=== PATIENT | male | born 1935 | race Caucasian/White ===

== ENCOUNTER 2017-06-29 07:02 | Day surgery (SDC) | payer OTHER, BC ==
[2017-06-29] MEDS ORDERED: LIDOCAINE 1% MPF 5 ML VIAL ONE (08:16)
[2017-06-29] MEDS ORDERED: PROPOFOL 200 MG/20 ML VIAL IV ONE (08:16)
[2017-06-29] MEDS ORDERED: Ringers Lactate 1,000 ML IV ONE (08:23)
[2017-06-29] MEDS ORDERED: ONDANSETRON 4 MG/2 ML VIAL ONE (08:55)
[2017-06-29 09:43] VITALS: BP 126/67; TEMP 97; O2SAT 100
--- NOTE | 2017-06-29 10:25 | ENDO RPT ---
[address], [address] COLONOSCOPY PROCEDURE REPORT EXAM DATE: 06/29/2017 PATIENT NAME: Ace William MR #: [id number] BIRTHDATE: 1935 ATTENDING: Jose Alejandro Landry MD STATUS: outpatient PAEDIATRICIAN: Christy Huerta and Mary Ko RN INDICATIONS: The patient is a 82 yr old Male here for a colonoscopy due to abdominal pain, unexplained chronic diarrhea, personal history of colon polyps, and change in bowel habits PROCEDURE PERFORMED: Colonoscopy with biopsy - cold polypectomy MEDICATIONS: Per Anesthesia. ESTIMATED BLOOD LOSS: None CONSENT: The patient understands the risks and benefits of the procedure and understands that these risks include, but are not limited to: sedation, allergic reaction, infection, perforation and/or bleeding. Alternative means of evaluation and treatment include, among others: physical exam, x-rays, and/or surgical intervention. The patient elects to proceed with this endoscopic procedure. DESCRIPTION OF PROCEDURE: During intra-op preparation period all mechanical medical equipment was checked for proper function. Hand hygiene and appropriate measures for infection prevention was taken. Procedure, possible complications, alternatives including, but not limited to possibility of bleeding, perforation, tear, infection, sepsis, need for surgery, need for blood transfusion, were explained to the patient. After the risks, benefits and alternatives of the procedure were thoroughly explained, Informed consent was verified, confirmed and timeout was successfully executed by the treatment team. The patient was placed in the left lateral position. A digital rectal exam was performed and revealed external hemorrhoids. After appropriate level of anesthesia, the scope was passed. The EC-[id number] ([id number]) endoscope was introduced through the anus and advanced to the cecum, which was identified by transillumination from the light source, the appendix, and the ileocecal valve. The quality of the prep was good. The instrument was then slowly withdrawn as the colon was fully examined. Scope withdrawal time was . COLON FINDINGS: Multiple smooth sessile polyps were found. A polypectomy was performed using hot forceps. The resection was complete, the polyp tissue was completely retrieved and sent to histology. A small diffuse near circumferential patch of abnormal mucosa was found in the sigmoid colon. The mucosa was edematous and erythematous. A biopsy of the area was performed using hot forceps. sessile polyps, less than 0.5 cm in size at approx 120cm and 35 cm from anal verge. Retroflexed views revealed no abnormalities. The scope was then completely withdrawn from the patient and the procedure terminated. ADVERSE EVENTS: There were no complications. IMPRESSIONS: 1. Multiple sessile polyps were found; polypectomy was performed in a piecemeal fashion using hot forceps 2. Small diffuse near circumferential abnormal mucosa was found in the sigmoid colon; The mucosa was edematous and erythematous; biopsy of the area was performed using hot forceps 3. External hemorrhoids 4. Internal hemorrhoids RECOMMENDATIONS: 1. await biopsy results RECALL: for Colonoscopy, pending biopsy results. Jose Alejandro Landry MD eSigned: Jose Alejandro Landry MD 06/29/2017 10:24 AM cc: Miky Pérez M.D. CPT CODES: ICD9 CODES: PATIENT NAME: Ace William MR#: [id number]
== END 2017-06-29 09:55 | disposition home or self-care (01) ==
LOC: OR 07:02
PROVIDERS: ATTEND Surgery
PROC: 0DBE8ZZ Excision of Large Intestine, Via Natural or Artificial Opening Endoscopic (ICD-10-PCS; principal; 2017-06-29 08:30)
DX: D12.6 Benign neoplasm of colon, unspecified (principal); K52.9 Noninfective gastroenteritis and colitis, unspecified; K64.8 Other hemorrhoids; K64.4 Residual hemorrhoidal skin tags; I10 Essential (primary) hypertension; Z85.828 Personal history of other malignant neoplasm of skin; Z86.73 Personal history of transient ischemic attack (TIA), and cerebral infarction without residual deficits; Z80.1 Family history of malignant neoplasm of trachea, bronchus and lung; Z82.49 Family history of ischemic heart disease and other diseases of the circulatory system
CPT/HCPCS: 45380; 88305; J2405

== ENCOUNTER 2018-08-09 09:19 | Day surgery (SDC) | payer OTHER, BC ==
--- OUTSIDE RECORDS SUMMARY | 2018-08-09 09:24 | XMS REPORT ---
:1935 Author Organization eClinicalWorks Care Team Providers Name Role Phone Kimberly Gomes Provider Role Unavailable Allergies No Known Allergies Problems Problem Type Condition Code Onset Dates Condition Status Assessment Benign prostatic hyperplasia with N40.1 Active lower urinary tract symptoms Problem Benign prostatic hyperplasia with N40.1 Active lower urinary tract symptoms Medications Medication Code Code Instructions Start End Status Dosage System Date Date Prinivil [facility] 87926083168 10 MG Orally Active 1 tablet Once a day Lipitor [facility] 79462141200 20 MG Orally Active 1 tablet Once a day Omeprazole ND 92818669486 40 MG Orally Active 1 capsule Once a day Fiber Formula [facility] 77005222937 - Orally Active as directed Paroxetine HCl [facility] 13606213937 20 MG Orally Active 1 tablet in Once a day the morning Jem Aspirin [facility] 03316175012 325 MG Orally Active 1 tablet Once a day Tamsulosin HCl [facility] 70021919061 0.4 MG Orally Apr 19September Active 1 capsule Once a day 2018 Results No Known Results Summary Purpose eClinicalWorks Submission
--- OUTSIDE RECORDS SUMMARY | 2018-08-09 09:25 | XMS REPORT ---
:1935 Author Organization eClinicalWorks Care Team Providers Name Role Phone Kimberly Gomes Provider Role Unavailable Allergies, Adverse Reactions, Alerts Substance Reaction Event Type N.K.D.A. Info Not Available Non Drug Allergy Problems Problem Type Condition Code Onset Dates Condition Status Assessment Benign prostatic hyperplasia with N40.1 Active lower urinary tract symptoms Problem Benign prostatic hyperplasia with N40.1 Active lower urinary tract symptoms Medications Medication Code Code Instructions Start End Status Dosage System Date Date Prinivil [facility] 30364984333 10 MG Orally Active 1 tablet Once a day Paroxetine HCl ND 15584108135 20 MG Orally Active 1 tablet in Once a day the morning Omeprazole ND 77507627451 40 MG Orally Active 1 capsule Once a day Fiber Formula [facility] 42856249853 - Orally Active as directed Jem Aspirin ND 08814829738 325 MG Orally Active 1 tablet Once a day Lipitor ND 81808332095 20 MG Orally Active 1 tablet Once a day Tamsulosin HCl [facility] 96296811558 0.4 MG Orally Active 1 capsule Once a day Results No Known Results Summary Purpose eClinicalWorks Submission
[2018-08-09] MEDS ORDERED: Ringers Lactate 1,000 ML IV ONE (10:07)
[2018-08-09] MEDS ORDERED: CEFAZOLIN/SWI 1gm 1 GM/10 ML SYR ONE (10:07)
[2018-08-09] MEDS ORDERED: LIDOCAINE 2% MPF 5 ML VIAL ONE (10:32)
[2018-08-09] MEDS ORDERED: PROPOFOL 200 MG/20 ML VIAL IV ONE (10:32)
[2018-08-09] MEDS ORDERED: FENTANYL CITR 100 MCG/2 ML ONE (10:32)
[2018-08-09] MEDS ORDERED: GLYCOPYRROLATE 0.2 MG/ML SYR ONE ×2 (11:16)
[2018-08-09] MEDS ORDERED: EPHEDRINE SULF 50 MG/ML VIAL ONE (11:45)
--- NOTE | 2018-08-09 11:55 | P.BOP ---
Preoperative diagnosis: Multiple chest, back assymetrical in shape and color masses Postoperative diagnosis: same Primary procedure: wide excision with frozen section 1. R upper chest 1x1cm Secondary procedure: 2. R upper back 2.5x1cm 3. L upper chest 3x3cm Other procedure(s): 4. Mid chest 1.5 x 1.5 cm Estimated blood loss: <10cc Specimen: x4 Findings: margins free of tumor by Dr Perez, final path will come after formal eval. Anesthesia: General Complications: None Transferred to: Recovery Room Condition: Good
[2018-08-09 13:03] VITALS: O2SAT 98
[2018-08-09] MEDS ORDERED: CODEINE 30MG/APAP 300MG TAB PO ONE (13:50)
[2018-08-09] MEDS ORDERED: CODEINE 30MG/APAP 300MG TAB ONE (14:02)
[2018-08-09 15:23] VITALS: BP 134/60; TEMP 97.2
--- NOTE | 2018-08-09 23:40 | OP ---
Date of Procedure: 08/09/2018 Surgeon: Jose Alejandro Landry MD Preoperative Diagnosis: Multiple chest, back asymmetrical in shape and color masses, rule out malign reyna. Postoperative Diagnosis: Multiple chest, back asymmetrical in shape and color masses, rule out malig moustapha. Procedure: 1.Wide excision with frozen section of the right upper chest mass 1 x 1 cm. 2.Wide excision with frozen section of the right upper back skin mass 2.5 x 1 cm. 3.Wide excision with frozen section of left upper chest skin mass 3 x 3 cm. 4.Wide excision with frozen section of mid chest 1.5 x 1.5 cm. Specimen: Masses x4. Findings: Margin free of tumor by Dr. Duenas. We are going to wait for the final result after the formal evaluation and permanent section. Anesthesia: General plus local. Indications: This is the case of an 83-year-old patient with history of skin cancer in the past, wit h 4 lesions that are changing color. It is becoming itchy, scaly, and ulcerated on and off. He want s all of them excised. The benefits, alternatives, and risks of wide excision of those lesions were fully explained to the patient with frozen section, including but not limited to infection, bleeding, damage to adjacent structures, anesthesia complication, recurrence, [place], and even . He also und erstands this may not relieve any symptoms. He might need more than one surgical intervention. He u nderstood, signed a consent. Each lesion was marked by me on the patient in the holding room. Description Of Procedure: The patient was brought to the operating room, placed in supine position. A time-out was called. The chest and back area were prepped and draped in a sterile fashion. Each mass was done individually the instruments to avoid cross contamination. Each mass was se nt to the pathologist individually and all of them using the same technique which consisted of wedge excision of the skin with gross negative margins all the way down to fat and subcutaneous tissue, priscilla beltran for orientation, and sent to the pathologist. Each lesion was done with closure in layers with 3 -0 chromic in the subcutaneous layers and dermis and then 3-0 nylon for the skin. Each procedure was done individually. Sponge count and instrument counts were correct. Local anesthesia was applied b efore closure and also hemostasis was applied before closure and after irrigation. The patient mary ated the procedure well. Dr. Duenas called the lesions varies from different pathologist, but that all the lesion margins were free. She is going to give us final results once she has a permanent for m and evaluation. The patient tolerated the procedure well. The patient was sent to recovery in sta ble condition. PARTH/RILEY Voice ID: [id number] Report ID: [id number]
--- NOTE | 2018-08-09 23:46 | DS ---
Date of Discharge: 08/09/2018 Diagnosis: Chest and back asymmetrical mass in shape and color. Procedure: Wide excision with frozen section of mass in the chest and upper back. Disposition: To home. Activity: As tolerated, no lifting. Followup: Follow up in my office in 1 week. Call for appointment [phone]. Keep area dry for 48 ho urs, then may shower. Keep triple antibiotics and Band-Aid after that. Medications: See orders. PARTH/RILEY Voice ID: [id number] Report ID: [id number]
== END 2018-08-09 14:15 | disposition home or self-care (01) ==
LOC: OR 09:19
PROVIDERS: ATTEND Surgery
PROC: 0JB73ZZ Excision of Back Subcutaneous Tissue and Fascia, Percutaneous Approach (ICD-10-PCS; principal; 2018-08-09 11:15)
PROC: 0JB63ZZ Excision of Chest Subcutaneous Tissue and Fascia, Percutaneous Approach (ICD-10-PCS; 2018-08-09 11:15)
DX: D18.01 Hemangioma of skin and subcutaneous tissue (principal); L30.8 Other specified dermatitis; L82.1 Other seborrheic keratosis; E78.5 Hyperlipidemia, unspecified; I10 Essential (primary) hypertension; Z79.82 Long term (current) use of aspirin; Z79.899 Other long term (current) drug therapy; Z85.828 Personal history of other malignant neoplasm of skin
CPT/HCPCS: 88331 ×2; 88332 ×2; 88305; 11402; 11406; 11403; 11404; 12034; J2704; J3010; J0690

== ENCOUNTER 2021-02-17 13:02 | Emergency (ER) | payer OTHER, BC ==
--- OUTSIDE RECORDS SUMMARY | 2021-02-17 13:09 | XMS REPORT | Continuity of Care Document ---
:1935 Author Organization [facility] t Address Formerly [facility] [address]. [address] [place] [address] Care Team Providers Name Role Phone Jessenia Montemayor Attending Clinician Provider, Urgent Care Attending Clinician Unavailable Lab, Fam Pob I Attending Clinician Unavailable Jessenia ANTONIO Attending Clinician Unavailable Payers Payer Name Policy Type Policy Number Effective Date Expiration Date S ource Problems Condition Condition Condition Status Onset Resolution Last Treating Co mments Source Name Details Category Date Date Treatment Clinician Date Wrist Wrist Disease Active Univers pain, left pain, left 06-21 it y of 00:00: [place] 00 [facility] Allergies, Adverse Reactions, Alerts Allergy Allergy Status Severity Reaction(s) Onset Inactive Treating Comm ents Source Name Type Date Date Clinician NO KNOWN Drug Active Univers ALLERGIE Class ity of S [facility] Social History Social Habit Start Date Stop Date Quantity Comments Source Exposure to Not sure [facility] SARS-CoV-2 (event) Medica l Branch Alcohol intake 2020-07-09 2020-07-09 [facility] 00:00:00 00:00:00 [facility] Tobacco use and 2020-07-09 2020-07-09 Never used [facility] exposure 00:00:00 00:00:00 [facility] Sex Ass[birth year] At [birth year] [facility] 00:00:00 00:00:00 [facility] Smoking Status Start Date Stop Date Source Never smoker [facility] Medications Ordered Filled Start Stop Current Ordering Indication Dosage Frequency Signature Comments Components Source Medication Medication Date Date Medication? Clinician (SIG) Name Name colchicine Yes .6mg Take 0.6 Uni vers 0.6 mg 4-15 mg by ity of tablet 16:06: mouth [place] [address] daily. Medical Branch LISINOPRIL Yes Take by Uni vers ORAL 4-15 mouth. ity of 16:06: [place] [address] Medical Branch tamsulosin Yes Take by Uni vers HCl 4-15 mouth. ity of (TAMSULOSIN 16:06: [place] ORAL) Medical Branch colchicine Yes .6mg Take 0.6 Uni vers 0.6 mg 4-15 mg by ity of tablet 16:06: mouth [place] [address] daily. Medical Branch LISINOPRIL Yes Take by Uni vers ORAL 4-15 mouth. ity of 16:06: [place] Medical Branch tamsulosin Yes Take by Uni vers HCl 4-15 mouth. ity of (TAMSULOSIN 16:06: [place] ORAL) Medical Branch colchicine Yes .6mg Take 0.6 Uni vers 0.6 mg 4-15 mg by ity of tablet 16:06: mouth [place] [address] daily. Medical Branch LISINOPRIL Yes Take by Uni vers ORAL 4-15 mouth. ity of 16:06: [place] [address] Medical Branch tamsulosin Yes Take by Uni vers HCl 4-15 mouth. ity of (TAMSULOSIN 16:06: [place] ORAL) Medical Branch methylPREDN 2020- No 84mg Take 21 Un crissy ISolone 18 -15 tablets by ity o f (MEDROL, 00:00: 00:00 mouth [place] EARLENE,) 4 mg 00 :00 SEE-INSTRU Med ical tablets CTIONS. Branch follow package directions meloxicam 2020- No Univers 7.5 mg 04-05-15 ity of tablet 00:00: 00:00 [place] 00 :00 Medical Branch fluorouraci 2015-03- No Soham rs l 5 % cream 05-15-15 ity of 00:00: 00:00 [place] 00 :00 Medical Branch pantoprazol Yes Eben s elmer 3-11 ity of (PROTONIX) 00:00: [place] 40 mg EC 00 Medical tablet Branch pantoprazol Yes Eben s e 3-11 ity of (PROTONIX) 00:00: [place] 40 mg EC 00 Medical tablet Branch pantoprazol Yes Univer s e 3-11 ity of (PROTONIX) 00:00: [place] 40 mg EC 00 Medical tablet Branch paroxetine Yes Univers (PAXIL) 20 2-09 ity of mg tablet 00:00: [place] Medical Branch paroxetine Yes Univers (PAXIL) 20 2-09 ity of mg tablet 00:00: [place] Medical [place] paroxetine Yes Univers (PAXIL) 20 2-09 ity of mg tablet 00:00: [place] [address] Medical [place] Omeprazole Omeprazole Yes Kimberly [address] [facility] Tamsulosin Tamsulosin Yes Kimberly [address] HCl HCl [facility] Lipitor Lipitor Yes Kimberly [address] [facility] Paroxetine Paroxetine Yes Kimberly [address] HCl HCl [facility] Fiber Fiber Yes Kimberly as [facility] Formula Formula [facility] Colchicine Colchicine Yes Kimberly [address] [facility] Jem Jem Yes Kimberly [address] [facility] Aspirin [facility]irin [facility] Prinivil Prinivil Yes Kimberly [address] [facility] Vital Signs Vital Name Observation Time Observation Value Comments Source Systolic blood 2020-07-05 15:32:00 159 mm[Hg] Univer sity of pressure [facility] Diastolic blood 2020-07-05 15:32:00 81 mm[Hg] [facility] Heart rate 2020-07-05 15:28:00 90 /min [facility] Body temperature 2020-07-05 15:28:00 36.72 Frieda [facility] Respiratory rate 2020-07-05 15:28:00 18 /min [facility] Body height 2020-07-05 15:28:00 177.8 cm [facility] Body weight 2020-07-05 15:28:00 90.719 kg [facility] BMI 2020-07-05 15:28:00 28.70 kg/m2 [facility] Oxygen saturation in 2020-07-05 15:28:00 98 /min [facility] Arterial blood by [facility] Pulse oximetry Branch Procedures Procedure Date / Time Performing Clinician Source Performed COMP. METABOLIC PANEL 2020-07-05 16:13:00 Stephanie Antonio [facility] ([id number]) [facility] CBC WITH DIFF 2020-07-05 16:13:[address] [facility] LIPASE 2020-07-05 16:13:[address] [facility] THYROID STIMULATING 2020-07-05 16:13:00 Stephanie Antonio [facility] HORMONE [facility] Encounters Start End Encounter Admission Attending Care Care Encounter Source Date/Time Date/Time Type Type Clinicians Facility Department ID 2020-07-23 2020[facility]07-[facility] [id number] [facility] 00:00:00 00:00:00 [facility] 2020-07-16 2020-07-16 Telephone Marcus [facility] [id number] [facility] 00:00:00 00:00:00 Stephanie [facility] [id number] i [place] [id number] Vladimir as Professio [id number] [address] Office Building One 2020-07-05 2020-07-05 Urgent Provider, [facility] [id number] [facility] 10:10:16 11:33:41 Care Stephanie Antonio [facility] [id number] [place]y [place] [id number] Vladimir as Professio [phone] [address] Office [facility] One 2020-07-05 2020-07-05 Bingo Cashier Lab, Adc Fam Pob I [facility] [id number] [facility] 11:11:15 11:31:15 Visit Stephanie Antonio [facility] [id number] [facility] [id number] Vladimir as Profjayio [id number] [address] Office Building One 2020-07-05 2020-07-05 Outpatient R [facility] [id number] Univers 10:00:00 10:00:00 [id number] [facility]-07-05 2020-07-05 Outpatient R MARCUS, [facility] [id number] Univers 10:00:00 10:00:00 STEPHANIE [facility] 2020-01-24 2020-01-24 [facility] [id number] [facility] 2019-08-31 2019-08-31 [place] [facility] [id number] [facility] [address] 10:00:00 10:00:00 [facility] 2019-06-28 2019-06-28 [facility] [id number] [address] 09:31:00 09:31:00 t [facility] Outpati ent Clinics 2019-03-01 2019-03-01 [facility] [id number] 09:45:00 09:45:00 t [facility] Outpati ent Clinics 2018-10-18 2018-10-18 [facility] [id number] [address] 10:00:00 10:00:00 t [facility] Outpati ent Clinics 2018-05-19 2018-05-19 [facility] [id number] 09:00:00 09:00:00 t [facility] Outpati ent Clinics 2018-04-19 2018-04-19 [facility] [id number] 10:00:00 10:00:00 t [facility] Out[facility] ent Clinics Results Test Description Test Time Test Comments Results Result Comments Source CBC WITH DIFF 2020-07-05 18:30:36 Test Item Value Reference Range Interpretation Comme nts WBC (test code = 6690-2) See_Comment L [A utomated message] The system which ge nerated this result transmit king reference range: 4.20 - 1 0.70 10*3/?L. The reference r acacia was not used to interpr et this result as normal/abnor mal. RBC (test code = 789-8) See_Comment L [Au tomated message] The system which ge nerated this result transmit king reference range: 4.26 - 5 .52 10*6/?L. The reference r acacia was not used to interpr et this result as normal/abnor mal. HGB (test code = 718-7) 12.8 g/dL 12.2-16.4 HCT (test code = 4544-3) 38.1 % 38.4-49.3 L MCV (test code = 787-2) 92.0 fL 81.7-95.6 MCH (test code = 785-6) 30.9 pg 26.1-32.7 MCHC (test code = 786-4) 33.6 g/dL 31.2-35.0 RDW-SD (test code = 50603-5) 39.0 fL 38.5-51.6 RDW-CV (test code = 788-0) 11.5 % 12.1-15.4 L PLT (test code = 777-3) See_Comment L [Au tomated message] The system which ge nerated this result transmit king reference range: 150 - 32 8 10*3/?L. The reference range was not used to interpret th is result as normal/abnormal . MPV (test code = 02339-1) 11.0 fL 9.8-13.0 IPF % (test code = 3.5 % 1.2-10.7 Platelet count measured by 2027256175) fluorescence me thod. NRBC/100 WBC (test code = See_Comment [ Automated message] The 9022524501) system which ge nerated this result transmit king reference range: 0.0 - 10 .0 /100 WBCs. The reference r acacia was not used to interpr et this result as normal/abnor mal. NRBC x10^3 (test code = <0.01 See_Comment [Au tomated message] The 8423391470) system which ge nerated this result transmit king reference range: 10*3/?L. The reference range was not u sed to interpret this result as normal/abnormal . SEG % (test code = 43260-6) 59 % 33-76 LYMPH % (test code = 23 % 14-54 75996-5) MONO % (test code = 48001-1) 18 % 0-4 H ANC (test code = 6893226540) 2.41 10*3/uL 1.99-6.95 PLT ESTIMATE (test code = Decreased Normal A 9317-9) Lab Interpretation (test Abnormal code = 83057-6) [facility] [id number] 18:22:30 Test Item Value Reference Range Interpretation Comments TSH (test code = See_Comment [Automated message] [id number]) The system whic h generated this result transmitted ref erence range: 0.45 - 4 .70 mIU/L. The refe rence range was not u sed to interpret this result as normal/abnor mal. Lab Interpretation (test Normal code = 84185-5) [facility]. METABOLIC PANEL (49446)2020-07-05 17:57:40 Test Item Value Reference Range Interpretation Comments NA (test code = 140 mmol/L 135-145 3362083033) K (test code = 4.2 mmol/L 3.5-5.0 7208465951) CL (test code = 104 mmol/L 98-108 2198994351) CO2 TOTAL (test code 29 mmol/L 23-31 = 7813082927) AGAP (test code = 2-16 6292858458) BUN (test code = 15 mg/dL 7-23 8344222355) GLUCOSE (test code = 73 mg/dL 70-110 4776127233) CREATININE (test code 0.71 mg/dL 0.60-1.25 = 9643416015) TOTAL BILI (test code 0.7 mg/dL 0.1-1.1 = 6062356609) CALCIUM (test code = 8.9 mg/dL 8.6-10.6 1776832502) T PROTEIN (test code 6.6 g/dL 6.3-8.2 = 6904558058) ALBUMIN (test code = 4.3 g/dL 3.5-5.0 0929951248) ALK PHOS (test code = 65 U/L 34-122 8014754535) ALTv (test code = 16 U/L 5-50 1742-6) AST(SGOT) (test code 23 U/L 13-40 = 8644833277) eGFR (test code = mL/min/1.73m2 4771433434) AARON (test code = AARON) Association of Glomerular Filtration Rate (GFR) and Staging of Kidney Disease* + + +- +| GFR (mL/min/1.73 m2) ?| With Kidney Damage ?| ?Without Kidney Damage+ ------+ ----+ ------+| ?>90 ?| ?Stage one ?| ? Normal ?+ -+ + -+| ?60-89 ?| ?Stage two ?| ? Decreased GFR ? + + +- +| ?30-59 ?| ?Stage three ?| ? Stage three ? + + +- +| ?15-29 ?| ?Stage four ? | ? Stage four ?+ -+ + -+| ?<15 (or dialysis) ? ?| ?Stage five ? | ? Stage five ?+ -+ + -+ *Each stage assumes the associated GFR level has been in effect for at least three months. ?Stages 1 to 5, with or without kidney disease, indicate chronic kidney disease. Notes: Determination of stages one and two (with eGFR >59mL/min/1.73 m2) requires estimation of kidney damage for at least three months as defined by structural or functional abnormalities of the kidney, manifested by either:Pathological abnormalities or Markers of kidney damage (including abnormalities in the composition of the blood or urine or abnormalities in imaging tests). [facility]57:04 Test Item Value Reference Range Interpretation Comments LIPASE (test code = 3727637725) 103 U/L 0-220 Lab Interpretation (test code = Normal 79052-1) [facility]"
[2021-02-17] MEDS ORDERED: ONDANSETRON 4 MG/2 ML VIAL ONE (13:40)
[2021-02-17] MEDS ORDERED: NA CHLORIDE 0.9% 500 ML ONE (13:41)
[2021-02-17 13:44] LABS: Absolute Lymphocytes (CBC) 1.4 K/uL (0.7-4.9); Basophils % 0.2 % (0-1.3); Hematocrit 39.7 % (39.6-49.0); Lymphocytes % 19.9 % (15.3-44.8); MPV 8.9 fL (7.6-11.3); RBC Red Blood Cell Count 4.26 M/uL (4.33-5.43)
--- NOTE | 2021-02-17 14:01 | RAD REPORT ---
EXAM DESCRIPTION: CTAbdomen Pelvis W Contrast - 02/17/2021 1:52 pm CLINICAL HISTORY: Abdominal pain. ABD PAIN COMPARISON: No comparisons TECHNIQUE: Biphasic CT imaging of the abdomen and pelvis was performed with 100 ml non-ionic IV cont rast. All CT scans are performed using dose optimization technique as appropriate and may include automated exposure control or mA/KV adjustment according to patient size. FINDINGS: Emphysematous lung bases noted. The liver, spleen, pancreas, adrenal glands and kidneys are within normal limits. No bowel obstruction, free air, free fluid or abscess. The appendix is not identified as a discrete structure, however, no secondary findings of appendicitis are identified. No evidence of significan t lymphadenopathy. Moderate lumbar degenerative changes. Small fat containing left inguinal hernia. IMPRESSION: No acute intra-abdominal or pelvic finding.
[2021-02-17 14:05] LABS: Albumin 4.1 g/dL (3.4-5.0); Bilirubin Direct 0.3 mg/dL (0-0.2); Potassium 4.1 mmol/L (3.5-5.1); Protein, Total 7.6 g/dL (6.4-8.2)
[2021-02-17 14:46] LABS: Urine Blood Negative (Negative); Urine Glucose Negative (Negative); Urine Protein Negative (Negative); Urine pH 5.5 (5.0-7.0)
[2021-02-17 15:25] LABS: Urine Bacteria <20 /HPF (NONE SEEN); Urine RBC <5 /HPF (NONE SEEN)
--- NOTE | 2021-02-17 15:42 | EDPHYS ---
Physician Documentation [facility] Name: Ace William Age: 86 yrs Sex: Male : 1935 Arrival Date: 02/17/2021 Time: 13:04 Bed 7 Private MD: ED Physician Mango Quinones HPI: 02/17 13:29 This 86 yrs old Male presents to ER via Ambulatory with complaints of Abdominal Pain. pm1 13:29 The patient presents with abdominal pain in the left lower quadrant. Onset: The pm1 symptoms/episode began/occurred 3 day(s) ago. The symptoms do not radiate. Associated signs and symptoms: Pertinent positives: constipation, nausea, Increased urinary frequency for the past 2 weeks, Pertinent negatives: chest pain, diarrhea, fever, shortness of breath, vomiting. The symptoms are described as sharp. Modifying factors: The symptoms are alleviated by Patient took [place] 10 prior to arrival and his pain is resolved, the symptoms are aggravated by nothing. Severity of pain: in the emergency department the pain has resolved. The patient has not experienced similar symptoms in the past. The patient has not recently seen a physician. Historical: - Allergies: 13:15 No Known Allergies; iw - Home Meds: 13:15 lisinopril 10 mg Oral tab 1 tab once daily [Active]; colchicine 0.6 mg Oral tab iw [Active]; atorvastatin 10 mg oral tab 1 tab once daily [Active]; paroxetine HCl 20 mg oral tab 1 tab once daily [Active]; tamsulosin 0.4 mg oral cap 1 cap once daily [Active]; Probiotic oral [Active]; - PMHx: 13:18 Hypertensive disorder; Hypercholesterolemia; constipation; iw - PSHx: 13:15 back; eye; skin cancer removed; iw - Immunization history:: Client reports receiving the 2nd dose of the Covid vaccine. - Social history:: Smoking status: . ROS: 13:29 Constitutional: Negative for fever, chills, and weight loss, Cardiovascular: Negative pm1 for chest pain, palpitations, and edema, Respiratory: Negative for shortness of breath, cough, wheezing, and pleuritic chest pain. 13:29 Back: Negative for injury and pain, Skin: Negative for injury, rash, and discoloration, Neuro: Negative for headache, weakness, numbness, tingling, and seizure. 13:29 Abdomen/GI: Positive for abdominal pain, nausea, constipation, of the left lower quadrant, Negative for vomiting, diarrhea. 13:29 MS/extremity: Positive for Chronic left hip pain. 13:29 All other systems are negative. Exam: 13:29 Constitutional: This is a well developed, well nourished patient who is awake, alert, pm1 and in no acute distress. Head/Face: Normocephalic, atraumatic. 13:29 Back: No spinal tenderness. No costovertebral tenderness. Full range of motion. Skin: Warm, dry with normal turgor. Normal color with no rashes, no lesions, and no evidence of cellulitis. MS/ Extremity: Pulses equal, no cyanosis. Neurovascular intact. Full, normal range of motion. 13:29 Eyes: Exam is negative for acute changes, Periorbital structures: appear normal, no acute changes, Extraocular movements: no acute changes, Conjunctiva: no acute changes, no injection, Sclera: no acute changes, icterus, is not appreciated. 13:29 ENT: Exam is negative for acute changes, Mouth: no acute changes, Lips: normal, moist, Oral mucosa: normal, pink and intact, moist. 13:29 Cardiovascular: Exam negative for acute changes, Rate: normal, Rhythm: regular, Pulses: no pulse deficits are appreciated, Heart sounds: normal, normal S1and S2. 13:29 Respiratory: Exam negative for acute changes, respiratory distress, shortness of breath. 13:29 Abdomen/GI: Inspection: abdomen appears normal, Palpation: abdomen is soft and non-tender, in all quadrants. 13:29 Neuro: Exam negative for acute changes, Orientation: is normal, Mentation: is normal, Motor: is normal, moves all fours. Vital Signs: 13:13 BP 153 / 82; Pulse 60; Resp 16; Temp 97.6; Pulse Ox 98% on R/A; Weight 90.72 kg; Height iw 5 ft. 10 in. (177.80 cm); 13:15 BP 133 / 67; Pulse 55; Resp 17; Pulse Ox 100% ; bp 14:00 BP 139 / 67; Pulse 56; Resp 16; Pulse Ox 99% ; bp 15:00 BP 150 / 76; Pulse 44; Resp 17; Pulse Ox 97% ; bp 15:54 BP 141 / 99; Pulse 51; Resp 17; Temp 97.9; Pulse Ox 100% ; bp 13:13 Body Mass Index 28.70 (90.72 kg, 177.80 cm) iw MDM: 13:22 Patient medically screened. pm1 13:34 Data reviewed: vital signs. Data interpreted: Pulse oximetry: on room air is 98 %. pm1 Interpretation: normal. 15:40 Counseling: I had a detailed discussion with the patient and/or guardian regarding: the pm1 historical points, exam findings, and any diagnostic results supporting the discharge/admit diagnosis, lab results, radiology results, the need for outpatient follow up, to return to the emergency department if symptoms worsen or persist or if there are any questions or concerns that arise at home. 02/17 13:27 Order name: Basic Metabolic Panel; Complete Time: 14:14 pm1 02/17 13:27 Order name: CBC with Diff; Complete Time: 14:14 pm1 02/17 13:27 Order name: Hepatic Function; Complete Time: 14:14 pm1 02/17 13:27 Order name: Lipase; Complete Time: 14:14 pm1 02/17 13:27 Order name: Urine Microscopic Only; Complete Time: 15:27 pm1 02/17 14:46 Order name: Urine Dipstick-Ancillary; Complete Time: 15:04 EDMS 02/17 13:27 Order name: IV Saline Lock; Complete Time: 13:36 pm1 02/17 13:27 Order name: Labs collected and sent; Complete Time: 13:36 pm1 02/17 13:27 Order name: CT Abd/Pelvis - IV Contrast Only; Complete Time: 14:14 pm1 02/17 13:27 Order name: Urine Dipstick-Ancillary (obtain specimen); Complete Time: 15:22 pm1 Administered Medications: 13:50 Drug: Zofran (Ondansetron) 4 mg Route: IVP; Site: right forearm; bp 15:22 Follow up: Response: No adverse reaction bp 13:55 Drug: NS 0.9% 500 ml Route: IV; Rate: bolus; Site: right forearm; bp 15:55 Follow up: IV Status: Completed infusion; IV Intake: 500ml bp Disposition: 02/18 09:24 Co-signature as Attending Physician, Mango Quinones MD I agree with the assessment and sp3 plan of care. Disposition Summary: 02/17/21 15:41 Discharge Ordered Location: Home pm1 Problem: new pm1 Symptoms: have improved pm1 Condition: Stable pm1 Diagnosis - Abdominal pain, unspecified pm1 Followup: pm1 - With: Emergency Department - When: As needed - Reason: Worsening of condition Followup: pm1 - With: Private Physician - When: 2 - 3 days - Reason: Recheck today's complaints, Continuance of care, Re-evaluation by your physician Discharge Instructions: - Discharge Summary Sheet pm1 - Abdominal Pain, Adult pm1 - Muscle Strain pm1 Forms: - Medication Reconciliation Form pm1 - Thank You Letter pm1 - Antibiotic Education pm1 - Prescription Opioid Use pm1 Prescriptions: - acetaminophen-codeine 300-15 mg Oral tablet - take 2 tablet by ORAL route every 6 hours As needed as needed; 12 tablet; pm1 Refills: 0, Product Selection Permitted Signatures: Dispatcher [employer] Evelyn Crouch RN RN iw Marinas, Patrick, NP INSIDE METER TESTER pm1 Vito Pa RN RN bp Patel, Setul, MD MD sp3
--- NOTE | 2021-02-17 15:42 | ER ---
Nurse's Notes [facility] Name: Ace William Age: 86 yrs Sex: Male : 1935 Arrival Date: 02/17/2021 Time: 13:04 Bed 7 Private MD: Diagnosis: Abdominal pain, unspecified Presentation: 02/17 13:13 Chief complaint: Patient states: LLQ pain X 3 days , yesterday was putting the clock iw back up and while his hands were up he felt burning in his left hi[ and now he has burning pain in left abd , denies pain with urination, is having urinary frequency for past two weeks at night. Coronavirus screen: At this time, the client does not indicate any symptoms associated with coronavirus-19. Ebola Screen: Patient negative for fever greater than or equal to 101.5 degrees Fahrenheit, and additional compatible Ebola Virus Disease symptoms Patient denies exposure to infectious person. Patient denies travel to an Ebola-affected area in the 21 days before illness onset. No symptoms or risks identified at this time. Initial Sepsis Screen: Does the patient meet any 2 criteria? No. Patient's initial sepsis screen is negative. Does the patient have a suspected source of infection? No. Patient's initial sepsis screen is negative. Risk Assessment: Do you want to hurt yourself or someone else? Patient reports no desire to harm self or others. Onset of symptoms was February 14, 2021. 13:13 Method Of Arrival: Ambulatory iw 13:13 Acuity: LYDIA 3 iw Triage Assessment: 13:15 General: Appears in no apparent distress. uncomfortable, Behavior is calm, cooperative, bp appropriate for age. Pain: Complains of pain in left lower quadrant. EENT: No deficits noted. Neuro: No deficits noted. Cardiovascular: No deficits noted. Respiratory: No deficits noted. GI: Abdomen is Reports lower abdominal pain. : No signs and/or symptoms were reported regarding the genitourinary system. Derm: No deficits noted. Musculoskeletal: No deficits noted. Historical: - Allergies: 13:15 No Known Allergies; iw - Home Meds: 13:15 lisinopril 10 mg Oral tab 1 tab once daily [Active]; colchicine 0.6 mg Oral tab iw [Active]; atorvastatin 10 mg oral tab 1 tab once daily [Active]; paroxetine HCl 20 mg oral tab 1 tab once daily [Active]; tamsulosin 0.4 mg oral cap 1 cap once daily [Active]; Probiotic oral [Active]; - PMHx: 13:18 Hypertensive disorder; Hypercholesterolemia; constipation; iw - PSHx: 13:15 back; eye; skin cancer removed; iw - Immunization history:: Client reports receiving the 2nd dose of the Covid vaccine. - Social history:: Smoking status: . Screenin:30 Abuse screen: Denies threats or abuse. Denies injuries from another. Nutritional bp screening: No deficits noted. Tuberculosis screening: No symptoms or risk factors identified. Fall Risk None identified. Assessment: 13:15 General: SEE TRIAGE NOTE. bp 14:03 Reassessment: PT RETURNED FROM CT. UOP PENDING. GI: Bowel sounds present X 4 quads. Abd bp is soft X 4 quads. 15:22 Reassessment: PROVIDER AT B/S. bp 15:54 Reassessment: PT D/C HOME AMBULATORY WITH FAMILY, DX WITH NONSPECIFIC ABDOMINAL PAIN bp AND MUSCLE STRAIN. Vital Signs: 13:13 BP 153 / 82; Pulse 60; Resp 16; Temp 97.6; Pulse Ox 98% on R/A; Weight 90.72 kg; Height iw 5 ft. 10 in. (177.80 cm); 13:15 BP 133 / 67; Pulse 55; Resp 17; Pulse Ox 100% ; bp 14:00 BP 139 / 67; Pulse 56; Resp 16; Pulse Ox 99% ; bp 15:00 BP 150 / 76; Pulse 44; Resp 17; Pulse Ox 97% ; bp 15:54 BP 141 / 99; Pulse 51; Resp 17; Temp 97.9; Pulse Ox 100% ; bp 13:13 Body Mass Index 28.70 (90.72 kg, 177.80 cm) iw ED Course: 13:04 Patient arrived in ED. as 13:08 Primitivo Allison NP is PHCP. pm1 13:08 Mango Quinones MD is Attending Physician. pm1 13:15 Triage completed. iw 13:17 Arm band placed on. iw 13:29 Vito Pa, JEROMY is Primary Nurse. bp 13:30 Patient has correct armband on for positive identification. Bed in low position. Call bp light in reach. Side rails up X2. 13:30 Initial lab(s) drawn, by me, sent to lab. Inserted saline lock: 22 gauge in right dh3 forearm, using aseptic technique. Blood collected. 13:52 CT Abd/Pelvis - IV Contrast Only In Process Unspecified. EDMS 15:54 No provider procedures requiring assistance completed. IV discontinued, intact, bp bleeding controlled, No redness/swelling at site. Pressure dressing applied. Administered Medications: 13:50 Drug: Zofran (Ondansetron) 4 mg Route: IVP; Site: right forearm; bp 15:22 Follow up: Response: No adverse reaction bp 13:55 Drug: NS 0.9% 500 ml Route: IV; Rate: bolus; Site: right forearm; bp 15:55 Follow up: IV Status: Completed infusion; IV Intake: 500ml bp Intake: 15:55 IV: 500ml; Total: 500ml. bp Outcome: 15:41 Discharge ordered by MD. pm1 15:54 Discharged to home ambulatory, with family. bp 15:54 Condition: stable 15:54 Discharge instructions given to patient, family, Instructed on discharge instructions, follow up and referral plans. medication usage, Demonstrated understanding of instructions, follow-up care, medications, Prescriptions given X 1. 15:56 Patient left the ED. bp Signatures: Dispatcher [employer] EDMS Lilo Landry Irene, RN RN iw Primitivo Allison, [employer] ADMINISTRATOR pm1 Delisa Springer [facility] Vito Pa, RN RN bp
[2021-02-17 16:18] VITALS: BP 141/99; TEMP 97.9; O2SAT 100
== END 2021-02-17 15:56 | disposition home or self-care (01) ==
LOC: ER 13:02
DX: R10.32 Left lower quadrant pain (principal); I10 Essential (primary) hypertension; E78.00 Pure hypercholesterolemia, unspecified
CPT/HCPCS: 96361; 85025; 80048; 36415; 82565; 80076; 83690; 74177; 96374; 99284; Q9967; J7040; J2405; 81003; 81015

== ENCOUNTER 2021-04-10 06:36 | Day surgery (SDC) | payer OTHER, BC ==
[2021-04-10] MEDS ORDERED: Ringers Lactate 1,000 ML IV ONE (06:58)
[2021-04-10] MEDS ORDERED: propofoL 200 MG/20 ML VIAL IV ONE (07:25)
[2021-04-10] MEDS ORDERED: LIDOCAINE 1% MPF 5 ML VIAL ONE (07:26)
[2021-04-10 08:00] VITALS: BP 121/89; TEMP 97.2; O2SAT 99
== END 2021-04-10 07:55 | disposition home or self-care (01) ==
LOC: OR 06:36
PROVIDERS: ATTEND Surgery
DX: K59.00 Constipation, unspecified (principal); R10.32 Left lower quadrant pain; Z20.822 Contact with and (suspected) exposure to COVID-19; Z53.09 Procedure and treatment not carried out because of other contraindication
CPT/HCPCS: U0003; J7120; J2704

== ENCOUNTER 2021-05-01 06:35 | Day surgery (SDC) | payer OTHER, BC ==
[2021-05-01] MEDS ORDERED: Ringers Lactate 1,000 ML IV ONE (06:55)
[2021-05-01] MEDS ORDERED: LIDOCAINE 1% MPF 5 ML VIAL ONE (07:30)
[2021-05-01] MEDS ORDERED: propofoL 200 MG/20 ML VIAL IV ONE (07:30)
--- NOTE | 2021-05-01 08:11 | ENDO RPT ---
[address], [address] COLONOSCOPY PROCEDURE REPORT EXAM DATE: 05/01/2021 PATIENT NAME: Ace William MR #: [id number] BIRTHDATE: 1935 ATTENDING: Jose Alejandro Landry MD STATUS: outpatient WELL DRILL OPERATOR: Di Bhatt RN and Ford Matias CST INDICATIONS: The patient is a 86 yr old Male here for a colonoscopy due to personal history of colon polyps, abdominal pain, and change in bowel habits PROCEDURE PERFORMED: Colonoscopy MEDICATIONS: Per Anesthesia. ESTIMATED BLOOD LOSS: None CONSENT: The patient understands the risks and benefits of the procedure and understands that these risks include, but are not limited to: sedation, allergic reaction, infection, perforation and/or bleeding. Alternative means of evaluation and treatment include, among others: physical exam, x-rays, and/or surgical intervention. The patient elects to proceed with this endoscopic procedure. DESCRIPTION OF PROCEDURE: During intra-op preparation period all mechanical medical equipment was checked for proper function. Hand hygiene and appropriate measures for infection prevention was taken. Procedure, possible complications, alternatives including, but not limited to possibility of bleeding, perforation, tear, infection, sepsis, need for surgery, need for blood transfusion, were explained to the patient. After the risks, benefits and alternatives of the procedure were thoroughly explained, Informed consent was verified, confirmed and timeout was successfully executed by the treatment team. The patient was placed in the left lateral position. A digital rectal exam was performed and revealed hemorrhoids. After appropriate level of anesthesia, the scope was passed. The EC-[id number] ([id number]) endoscope was introduced through the anus and advanced to the cecum, which was identified by transillumination from the light source, the appendix, and the ileocecal valve. The quality of the prep was fair. The instrument was then slowly withdrawn as the colon was fully examined. Scope withdrawal time was . COLON FINDINGS: Diverticula was found in the descending colon. The opening was medium sized. Retroflexed views revealed no abnormalities. The scope was then completely withdrawn from the patient and the procedure terminated. ADVERSE EVENTS: There were no complications. IMPRESSIONS: 1. Diverticula in the descending colon 2. External hemorrhoids 3. Internal hemorrhoids RECOMMENDATIONS: 1. follow-up: office 1 week(s) 2. no seeds in diet RECALL: Return in 3-5 year(s) for Colonoscopy. Jose Alejandro Landry MD eSigned: Jose Alejandro Landry MD 05/01/2021 8:11 AM cc: Miky Pérez M.D. CPT CODES: ICD9 CODES: PATIENT NAME: Ace William MR#: [id number]
[2021-05-01 09:17] VITALS: BP 128/62; TEMP 98.4; O2SAT 96
== END 2021-05-01 08:40 | disposition home or self-care (01) ==
LOC: PRE 06:35
PROVIDERS: ATTEND Surgery
PROC: 0DJD8ZZ Inspection of Lower Intestinal Tract, Via Natural or Artificial Opening Endoscopic (ICD-10-PCS; principal; 2021-05-01 07:30)
DX: R10.9 Unspecified abdominal pain (principal); R19.4 Change in bowel habit; Z86.010 Personal history of colon polyps; K64.4 Residual hemorrhoidal skin tags; K64.8 Other hemorrhoids; K57.30 Diverticulosis of large intestine without perforation or abscess without bleeding; Z20.822 Contact with and (suspected) exposure to COVID-19
CPT/HCPCS: 45378; U0003; J2704; J7120

== ENCOUNTER 2021-06-09 10:59 | Emergency (ER) | payer OTHER, BC ==
--- OUTSIDE RECORDS SUMMARY | 2021-06-09 11:02 | XMS REPORT | Continuity of Care Document ---
:1935 Author Organization [facility] t Address [facility] Greg [address] [place] [address] Care Team Providers Name Role Phone Jessenia [...] pain, left 06-21 it y of 00:00: [place] 00 [facility] Allergies, Adverse Reactions, Alerts Allergy Allergy Status Severity Reaction(s) Onset Inactive Treating Comm ents Source Name Type Date Date Clinician NO KNOWN Drug Active Univers ALLERGIE Class ity of S [facility] Social History Social Habit Start Date Stop Date Quantity Comments Source Exposure to Not sure [facility] SARS-CoV-2 (event) Medica l Branch Alcohol intake 2020-07-09 2020-07-09 [facility] 00:00:00 00:00:00 [facility] Tobacco use and 2020-07-09 2020-07-09 Never used [facility] exposure 00:00:00 00:00:00 [facility] Sex Ass[birth year] At [birth year] [facility] 00:00:00 00:00:00 [facility] Smoking Status Start Date Stop Date Source Never smoker [facility] Medications Ordered Filled Start Stop Current Ordering Indication Dosage Frequency Signature Comments Components Source Medication Medication Date Date Medication? Clinician (SIG) Name Name colchicine Yes .6mg Take 0.6 Uni vers 0.6 mg 4-15 mg by ity of tablet 16:06: mouth [place] [id number] daily. Medical Branch LISINOPRIL Yes Take by Uni vers ORAL 4-15 mouth. ity of 16:06: [place] [facility] tamsulosin Yes Take by Uni vers HCl 4-15 mouth. ity of (TAMSULOSIN 16:06: [place] ORAL) Medical Branch colchicine Yes .6mg Take 0.6 Uni vers 0.6 mg 4-15 mg by ity of tablet 16:06: mouth [place] daily. Medical Branch LISINOPRIL Yes Take by Uni vers ORAL 4-15 mouth. ity of 16:06: [place] [facility] tamsulosin Yes Take by Uni vers HCl 4-15 mouth. ity of (TAMSULOSIN 16:06: [place] ORAL) Medical Branch colchicine Yes .6mg Take 0.6 Uni vers 0.6 mg 4-15 mg by ity of tablet 16:06: mouth [place] [address] daily. Medical Branch LISINOPRIL Yes Take by Uni vers ORAL 4-15 mouth. ity of 16:06: [place] [address] Medical Branch tamsulosin Yes Take by Uni vers HCl 4-15 mouth. ity of (TAMSULOSIN 16:06: [place] ORAL) Medical Branch methylPREDN 2020- No 84mg Take 21 Un crissy ISolone 18 -15 tablets by ity o f (MEDROL, 00:00: 00:00 mouth [place] EARLENE,) 4 mg 00 :00 SEE-INSTRU Med ical tablets CTIONS. Branch follow package directions meloxicam 2020- No Univers 7.5 mg 04-0515 ity of tablet 00:00: 00:00 [place] 00 :00 Medical Branch fluorouraci 2015-03- No Soham rs l 5 % cream 05-1515 ity of 00:00: 00:00 [place] 00 :00 Medical Branch pantoprazol Yes Eben s e 3-11 [...] 20 2-09 ity of mg tablet 00:00: [place] [facility] [place] paroxetine Yes Univers (PAXIL) 20 2-09 ity of mg tablet 00:00: [place] [facility] paroxetine Yes Univers (PAXIL) 20 2-09 ity of mg tablet 00:00: [place] [facility] Omeprazole Omeprazole Yes Kimberly [address] [facility] Tamsulosin Tamsulosin Yes Kimberly [address] [facility] HCl HCl [place] [facility] Lipitor Lipitor Yes Kimberly [address] [facility] [place] [facility] Paroxetine Paroxetine Yes Kimberly [address] [facility] HCl HCl [place] [facility] Fiber Fiber Yes Kimberly as [facility] Formula Formula Eliseo directed [facility] Colchicine Colchicine Yes Kimberly [address] [facility] Jem Jem Yes Kimber[facility] [address] [facility] Aspirin Aspirin [place] [facility] Prinivil Prinivil Yes Kimber[place] [address] [place] [facility] Vital Signs Vital Name Observation Time Observation Value Comments Source Systolic blood 2020-07-05 15:32:00 159 mm[Hg] [facility] pressure [facility] Diastolic blood 2020-07-05 15:32:00 81 mm[Hg] [facility] 2020-07-05 15:28:00 90 /min [facility] Body temperature 2020-07-05 15:28:00 36.72 [facility] Respiratory rate 2020-07-05 15:28:00 18 /min [facility] Body height 2020-07-05 15:28:00 177.8 cm [facility] Body weight 2020-07-05 15:28:00 90.719 kg [facility] BMI 2020-07-05 15:28:00 28.70 kg/m2 [facility] Oxygen saturation in 2020-07-05 15:28:00 98 /min University Arterial blood by [facility] Pulse oximetry Branch Procedures Procedure Date / Time Performing Clinician Source Performed COMP. METABOLIC PANEL 2020-07-05 16:13:00 Stephanie Antonio [facility] ([id number]) [facility] CBC WITH DIFF 2020-07-05 16:13:00 Stephanie Antonio [facility] LIPASE 2020-07-05 16:13:00 Stephanie Antonio [facility] THYROID STIMULATING 2020-07-05 16:13:00 Stephanie Antonio [facility] Encounters Start End Encounter Admission Attending Care Care Encounter Source Date/Time Date/Time Type Type Clinicians Facility Department ID 2020-07-23 2020-07-23 Out[facility] [id number] [facility] St 00:00:00 00:00:00 [facility] 2020-07-16 2020-07-16 Telephone Marcus [facility] [id number] Univers 00:00:00 00:00:00 [facility] [id number] i ty of [place] [id number] Vladimir as Professio [phone] [address] 2020-07-05 2020-07-05 Urgent Provider, [facility] [id number] [facility] 10:10:16 11:33:41 Care Stephanie [facility] [id number] ity of [place] [id number] Vladimir as Professio [phone] [address] Office [address] 2020-07-05 2020-07-05 Customer Solutions Architect Lab, Adc Fam Pob I [facility] [id number] Univers 11:11:15 11:31:15 [id number] [facility] [id number] Vladimir as Profjayio [phone] [address] Office [address] 2020-07-05 2020-07-05 Outpatient R [facility] [id number] Univers 10:00:00 10:00:00 [id number] [facility] 2020-07-05 2020-07-05 [facility] [id number] Univers 10:00:00 10:00:00 STEPHNAIE [facility] 2020-01-24 2020-01-24 [facility] [id number] [facility] 2019-08-31 2019-08-31 [place] [place] [facility] [id number] [facility] 10:00:00 10:00:00 [facility] Outpati ent Clinics 2019-06-28 2019-06-28 [place] [id number] 09:31:00 09:31:00 t [facility] Outpati ent Clinics 2019-03-01 2019-03-01 [facility] [id number] 09:45:00 09:45:00 t [facility] Clinic Outpati ent Clinics 2018-10-18 2018-10-18 [facility] [id number] 10:00:00 10:00:00 t [facility] l Clinic Outpati ent Clinics 2018-05-19 2018-05-19 [facility] [id number] 09:00:00 09:00:00 t [facility] l Clinic Outpati ent Clinics 2018-04-19 2018-04-19 [facility] [id number] 10:00:00 10:00:00 t Specialty/U [facility] [...] 33.6 g/dL 31.2-35.0 RDW-SD (test code = 71241-8) 39.0 fL 38.5-51.6 RDW-CV (test code = 788-0) 11.5 % 12.1-15.4 L PLT (test code = 777-3) See_Comment L [Au tomated message] The system which ge nerated this result transmit king reference range: 150 - 32 8 10*3/?L. The reference range was not used to interpret th is result as normal/abnormal . MPV (test code = 61425-3) 11.0 fL 9.8-13.0 IPF % (test code = 3.5 % 1.2-10.7 Platelet count measured by 5366350880) fluorescence me thod. NRBC/100 WBC (test code = See_Comment [ Automated message] The 0310061844) system which ge nerated this result transmit king reference range: 0.0 - 10 .0 /100 WBCs. The reference r acacia was not used to interpr et this result as normal/abnor mal. NRBC x10^3 (test code = <0.01 See_Comment [Au tomated message] The 3769851056) system which ge nerated this result transmit king reference range: 10*3/?L. The reference range was not u sed to interpret this result as normal/abnormal . SEG % (test code = 38790-7) 59 % 33-76 LYMPH % (test code = 23 % 14-54 08818-8) MONO % (test code = 70961-3) 18 % 0-4 H ANC (test code = 6104764307) 2.41 10*3/uL 1.99-6.95 PLT ESTIMATE (test code = Decreased Normal A 9317-9) Lab Interpretation (test Abnormal code = 78405-9) [facility] [id number] 18:22:30 Test Item Value Reference Range Interpretation Comments TSH (test code = See_Comment [Automated message] [id number]) The system whic h generated this result transmitted ref erence range: 0.45 - 4 .70 mIU/L. The refe rence range was not u sed to interpret this result as normal/abnor mal. Lab Interpretation (test Normal code = 13134-5) [facility]. METABOLIC PANEL (36377)2020-07-05 17:57:40 Test Item Value Reference Range Interpretation Comments NA (test code = 140 mmol/L 135-145 0939716394) K (test code = 4.2 mmol/L 3.5-5.0 3222074691) CL (test code = 104 mmol/L 98-108 1344865087) CO2 TOTAL (test code 29 mmol/L 23-31 = 3702016928) AGAP (test code = 2-16 0726626066) BUN (test code = 15 mg/dL 7-23 4595046232) GLUCOSE (test code = 73 mg/dL 70-110 1868109265) CREATININE (test code 0.71 mg/dL 0.60-1.25 = 4465513653) TOTAL BILI (test code 0.7 mg/dL 0.1-1.1 = 2693500508) CALCIUM (test code = 8.9 mg/dL 8.6-10.6 8658566687) T PROTEIN (test code 6.6 g/dL 6.3-8.2 = 8570333440) ALBUMIN (test code = 4.3 g/dL 3.5-5.0 3900846902) ALK PHOS (test code = 65 U/L 34-122 0628373766) ALTv (test code = 16 U/L 5-50 1742-6) AST(SGOT) (test code 23 U/L 13-40 = 3297418740) eGFR (test code = mL/min/1.73m2 6445237257) AARON (test code = AARON) Association of [...] or urine or abnormalities in imaging tests). [facility] 17:57:04 Test Item Value Reference Range Interpretation Comments LIPASE (test code = 6151451261) 103 U/L 0-220 Lab Interpretation (test code = Normal 40272-0) [facility]"
[2021-06-09 11:55] LABS: Absolute Lymphocytes (CBC) 1.2 K/uL (0.7-4.9); Hematocrit 37.6 % (39.6-49.0); MPV 9.5 fL (7.6-11.3); RBC Red Blood Cell Count 4.04 M/uL (4.33-5.43)
[2021-06-09 12:13] LABS: Bilirubin Total 1.4 mg/dL (0.2-1.0); Potassium 3.9 mmol/L (3.5-5.1); Protein, Total 7.2 g/dL (6.4-8.2)
[2021-06-09 12:34] LABS: Blood Morphology Comment NOT SEEN (NOT SEEN); Platelet Estimate ADEQ
--- NOTE | 2021-06-09 13:46 | RAD REPORT ---
EXAM DESCRIPTION: CT - Abdomen Pelvis W Contrast - 06/09/2021 1:29 pm CLINICAL HISTORY: ABD PAIN COMPARISON: Abdomen Pelvis W Contrast dated 02/17/2021 TECHNIQUE: Biphasic, helical CT imaging of the abdomen and pelvis was performed following 100 ml non -ionic IV contrast. No oral contrast administered. All CT scans are performed using dose optimization technique as appropriate and may include automated exposure control or mA/KV adjustment according to patient size. FINDINGS: Moderately large right-side and small left-side pleural effusions are present. There is as sociated lower lobe atelectasis. Cardiomegaly is present without pericardial effusion. No lower rib a cute finding identified. The liver, spleen, and pancreas show no suspicious findings. Gallbladder and biliary tree are also wi thout suspicious finding. Symmetric renal function is seen with no hydronephrosis or suspicious renal mass. No pyelonephritis o r acute parenchymal process. No bladder abnormalities. No adrenal abnormalities. No dilated bowel loops or bowel wall thickening. No evidence of appendicitis. No free air, free fluid or inflammatory stranding. No mass or bulky lymphadenopathy. Fat extends into the origin of each in guinal canal. Prominent disc and bone degenerative changes are present. No pathologic bone process identified. Minimal stranding is seen in the subcutaneous fat in the left-side lower abdomen and iliac crest kassandra on. Is is only fractionally more pronounced than seen on the left. No soft tissue hematoma identified . IMPRESSION: No acute or significant posttraumatic changes to the abdomen or pelvis. Moderately large right-side and small left-side pleural effusions with associated lower lobe atelecta sis. No associated rib injury seen. Pleural effusions are new from 02/17/2021 but no etiology is evid ent.
--- NOTE | 2021-06-09 15:13 | ER ---
Nurse's Notes [facility] Name: Ace William Age: 86 yrs Sex: Male : 1935 Arrival Date: 06/09/2021 Time: 11:01 Bed 5 Private MD: Bruce Gomes R Diagnosis: Contusion of abdominal wall Presentation: 06/09 11:22 Chief complaint: Patient states: Got pinched or a pipe fell from a trailer about a week ww ago and having left sided abdominal pain. Coronavirus screen: Vaccine status: Client denies travel out of the [place] in the last 14 days. Ebola Screen: Patient denies travel to an Ebola-affected area in the 21 days before illness onset. Initial Sepsis Screen: Does the patient meet any 2 criteria? No. Patient's initial sepsis screen is negative. Does the patient have a suspected source of infection? No. Patient's initial sepsis screen is negative. Risk Assessment: Do you want to hurt yourself or someone else? Patient reports no desire to harm self or others. Onset of symptoms is unknown. 11:22 Method Of Arrival: Ambulatory ww 11:22 Acuity: LYDIA 3 ww Triage Assessment: 11:25 General: Appears in no apparent distress. Behavior is calm, cooperative. Pain: ww Complains of pain in left upper quadrant and left lower quadrant. Neuro: Level of Consciousness is awake, alert, obeys commands, Oriented to person, place, time, situation, Moves all extremities. Cardiovascular: Patient's skin is warm and dry. Respiratory: Airway is patent Respiratory effort is even, unlabored, Respiratory pattern is regular, symmetrical. GI: Reports lower abdominal pain, upper abdominal pain, constipation. : No signs and/or symptoms were reported regarding the genitourinary system. Historical: - Allergies: 11:25 No Known Allergies; ww - PMHx: 11:25 constipation; Hypercholesterolemia; Hypertensive disorder; ww - PSHx: 11:25 back; eye; skin cancer removed; ww - Immunization history:: Adult Immunizations up to date. - Social history:: Smoking status: Patient denies any tobacco usage or history of. Screenin:53 Abuse screen: Denies threats or abuse. Denies injuries from another. Nutritional ic1 screening: No deficits noted. Tuberculosis screening: No symptoms or risk factors identified. Fall Risk None identified. Assessment: 11:53 General: Appears in no apparent distress. uncomfortable, Behavior is calm, cooperative. ic1 Pain: Complains of pain in abdomen. Neuro: Level of Consciousness is awake, alert, obeys commands, Oriented to person, place, time, situation. Cardiovascular: Denies chest pain. Respiratory: Denies cough, shortness of breath. GI: Abd is soft Abdomen is tender to palpation Reports lower abdominal pain, on L side and radiates around to R side. Patient currently denies constipation, diarrhea, nausea, vomiting. : No deficits noted. EENT: No deficits noted. Derm: No deficits noted. Musculoskeletal: No deficits noted. 13:45 Reassessment: Patient appears in no apparent distress at this time. No changes from ic1 previously documented assessment. Patient and/or family updated on plan of care and expected duration. Pain level reassessed. Patient is alert, oriented x 3, equal unlabored respirations, skin warm/dry/pink. Patient denies pain at this time. 15:26 GI: Bowel sounds present X 4 quads. simons Vital Signs: 11:22 BP 133 / 100; Pulse 79; Resp 18; Temp 97.9; Pulse Ox 96% on R/A; Weight 90.72 kg; ww Height 5 ft. 10 in. (177.80 cm); Pain 0/10; 11:53 BP 159 / 80; Pulse 81; Resp 18; Pulse Ox 97% ; ic1 12:51 BP 132 / 104; Pulse 92; Resp 18; Pulse Ox 98% on R/A; ic1 13:45 BP 134 / 78; Pulse 85; Resp 16; Pulse Ox 96% on R/A; ic1 14:50 BP 141 / 90; Pulse 74; Resp 18; Pulse Ox 98% ; ic1 11:22 Body Mass Index 28.70 (90.72 kg, 177.80 cm) ww ED Course: 11:01 Patient arrived in ED. as 11:01 Bruce Gomes MD is Private Physician. as 11:02 Tahir Self MD is Attending Physician. kdr 11:25 Triage completed. ww 11:25 Arm band placed on left wrist. ww 11:51 Joanna Alegria, JEROMY is Primary Nurse. ic1 11:51 CBC with Diff Sent. ic1 11:52 CMP Sent. ic1 11:53 Patient has correct armband on for positive identification. Placed in gown. Bed in low ic1 position. Call light in reach. Side rails up X2. Adult w/ patient. Pulse ox on. NIBP on. Warm blanket given. 11:53 Lipase Sent. ic1 11:53 Lipase Sent. ic1 11:53 Comprehensive Metabolic Panel Sent. ic1 11:53 CBC with Automated Diff Sent. ic1 11:53 No provider procedures requiring assistance completed. Inserted saline lock: 20 gauge ic1 in left antecubital area, using aseptic technique. Blood collected. 13:29 CT Abd/Pelvis - IV Contrast Only In Process Unspecified. EDMS 15:12 Bruce Gomes MD is Referral Physician. kdr 15:26 IV discontinued, intact, Pressure dressing applied. simons Administered Medications: No medications were administered Outcome: 15:13 Discharge ordered by . kdr 15:26 Discharged to home simons 15:26 Condition: good 15:26 Discharge instructions given to patient. 15:26 Patient left the ED. simons Signatures: Dispatcher [employer] EDHI Tahir Self MD MD [facility] Lilo Landry Whitney, RN RN Jillian Alarcon RN RN Joanna Alegria RN RN ic1
--- NOTE | 2021-06-09 15:13 | EDPHYS ---
Physician Documentation [facility] Name: Ace William Age: 86 yrs Sex: Male : 1935 Arrival Date: 06/09/2021 Time: 11:01 Bed 5 Private MD: Bruce Gomes R ED Physician Tahir Self HPI: 06/09 12:53 This 86 yrs old Male presents to ER via Ambulatory with complaints of Abdominal Pain. kdr 12:53 The patient presents with abdominal pain in the lower abdomen, blunt injury to the kdr lower abdomen. Onset: The symptoms/episode began/occurred 1 week(s) ago. The symptoms do not radiate. Associated signs and symptoms: Pertinent positives: Patient states that initially for the first few days after the event happened, he had little pain. Since then he initially has had pain around the left mid to lower quadrant and was able to find comfort laying on his left side. Then he found more comfortable laying on his right side for a few days and last night he was not able to find comfort in any position with Jett or global discomfort, Pertinent negatives: nausea and vomiting, blood in stools, chest pain, constipation, diarrhea, dysuria, fever, headache, hematuria, nausea, palpitations, shortness of breath, testicular pain, vomiting, vomiting blood. The symptoms are described as achy, constant, crampy, vague. Severity of pain: At its worst the pain was moderate severe incapacitating this morning. The patient has not recently seen a physician. Historical: - Allergies: 11:25 No Known Allergies; ww - PMHx: 11:25 constipation; Hypercholesterolemia; Hypertensive disorder; ww - PSHx: 11:25 back; eye; skin cancer removed; ww - Immunization history:: Adult Immunizations up to date. - Social history:: Smoking status: Patient denies any tobacco usage or history of. ROS: 12:53 Constitutional: Negative for fever, chills, and weight loss, Eyes: Negative for injury, kdr pain, redness, and discharge, ENT: Negative for injury, pain, and discharge, Neck: Negative for injury, pain, and swelling, Cardiovascular: Negative for chest pain, palpitations, and edema, Respiratory: Negative for shortness of breath, cough, wheezing, and pleuritic chest pain, Back: Negative for injury and pain, MS/Extremity: Negative for injury and deformity, Skin: Negative for injury, rash, and discoloration, Neuro: Negative for headache, weakness, numbness, tingling, and seizure activity. Exam: 12:56 Constitutional: This is a well developed, well nourished patient who is awake, alert, kdr and in no acute distress. Head/Face: Normocephalic, atraumatic. Eyes: Pupils equal round and reactive to light, extra-ocular motions intact. Lids and lashes normal. Conjunctiva and sclera are non-icteric and not injected. Cornea within normal limits. Periorbital areas with no swelling, redness, or edema. Neck: Trachea midline, no thyromegaly or masses palpated, and no cervical lymphadenopathy. Supple, full range of motion without nuchal rigidity, or vertebral point tenderness. No Meningismus. Chest/axilla: Normal chest wall appearance and motion. Nontender with no deformity. No lesions are appreciated. Respiratory: Lungs have equal breath sounds bilaterally, clear to auscultation and percussion. No rales, rhonchi or wheezes noted. No increased work of breathing, no retractions or nasal flaring. Male : Normal genitalia with no discharge or lesions. Skin: Warm, dry with normal turgor. Normal color with no rashes, no lesions, and no evidence of cellulitis. MS/ Extremity: Pulses equal, no cyanosis. Neurovascular intact. Full, normal range of motion. Neuro: Awake and alert, GCS 15, oriented to person, place, time, and situation. Cranial nerves II-XII grossly intact. Motor strength 5/5 in all extremities. Sensory grossly intact. Cerebellar exam normal. Normal gait. Psych: Awake, alert, with orientation to person, place and time. Behavior, mood, and affect are within normal limits. Vital Signs: 11:22 BP 133 / 100; Pulse 79; Resp 18; Temp 97.9; Pulse Ox 96% on R/A; Weight 90.72 kg; ww Height 5 ft. 10 in. (177.80 cm); Pain 0/10; 11:53 BP 159 / 80; Pulse 81; Resp 18; Pulse Ox 97% ; ic1 12:51 BP 132 / 104; Pulse 92; Resp 18; Pulse Ox 98% on R/A; ic1 13:45 BP 134 / 78; Pulse 85; Resp 16; Pulse Ox 96% on R/A; ic1 14:50 BP 141 / 90; Pulse 74; Resp 18; Pulse Ox 98% ; ic1 11:22 Body Mass Index 28.70 (90.72 kg, 177.80 cm) ww MDM: 15:13 Patient medically screened. kdr 17:34 Data reviewed: vital signs, nurses notes, lab test result(s). Counseling: I had a kdr detailed discussion with the patient and/or guardian regarding: the historical points, exam findings, and any diagnostic results supporting the discharge/admit diagnosis, lab results, radiology results, the need for outpatient follow up. 06/09 11:03 Order name: CBC with Diff kdr 06/09 11:03 Order name: CMP kdr 06/09 11:03 Order name: Lipase kdr 06/09 11:04 Order name: CBC with Automated Diff; Complete Time: 12:48 EDMS 06/09 11:04 Order name: Comprehensive Metabolic Panel; Complete Time: 12:48 EDMS 06/09 11:04 Order name: Lipase; Complete Time: 12:48 EDMS 06/09 11:03 Order name: IV Saline Lock; Complete Time: 11:40 kdr 06/09 11:03 Order name: Labs collected and sent; Complete Time: 11:53 kdr 06/09 11:57 Order name: Manual Differential; Complete Time: 12:48 EDMS 06/09 12:10 Order name: CT Abd/Pelvis - IV Contrast Only; Complete Time: 14:55 kdr Administered Medications: No medications were administered Disposition Summary: 06/09/21 15:13 Discharge Ordered Location: Home kdr Problem: new kdr Symptoms: have improved kdr Condition: Stable kdr Diagnosis - Contusion of abdominal wall kdr Followup: kdr - With: Bruce Gomes MD - When: 2 - 3 days - Reason: If symptoms return, Further diagnostic work-up, Recheck today's complaints, Continuance of care, Re-evaluation by your physician Discharge Instructions: - Discharge Summary Sheet kdr - Contusion, Bani-et-Tagz kdr Forms: - Medication Reconciliation Form kdr - Thank You Letter kdr - Prescription Opioid Use kdr Prescriptions: - Tylenol-Codeine #3 300 mg-30 mg Oral - take 2 tablet by ORAL route at bedtime As needed; 16 tablet; Refills: 0, kdr Product Selection Permitted Signatures: Dispatcher [employer] Tahir Yanez MD MD kdr Laurita Harmon, RN RN ww
[2021-06-09 15:32] VITALS: TEMP 97.9
[2021-06-09 15:36] VITALS: BP 141/90; O2SAT 98
== END 2021-06-09 15:26 | disposition home or self-care (01) ==
LOC: ER 10:59
DX: S30.1XXA Contusion of abdominal wall, initial encounter (principal); I10 Essential (primary) hypertension
CPT/HCPCS: 85025; 36415; 83690; 80053; 74177; 99284; Q9967

== ENCOUNTER 2023-08-31 13:26 | Inpatient (IN) | payer OTHER, BC ==
[2023-08-31 14:00] LABS: Absolute Lymphocytes (CBC) 1.2 K/uL (0.7-4.9); Absolute Monocytes 1.8 K/uL (0.1-1.3); Absolute Neutrophil 3.6 K/uL (1.8-8.0); Basophils % 0.1 % (0-1.3); Eosinophils % 0.1 % (0-4.4); Hematocrit 40.8 % (39.6-49.0); Hemoglobin 13.7 g/dL (13.6-17.9); Lymphocytes % 17.9 % (15.3-44.8); MCH 30.8 pg (27.0-35.0); MCHC 33.6 g/dL (32.0-36.0); MCV 91.7 fL (80-100); MPV 9.4 fL (7.6-11.3); Monocytes % 27.5 % (3.3-12.3); Neutrophils % 54.4 % (41.7-73.7); Platelets 85 thou/uL (152-406); RBC Red Blood Cell Count 4.45 M/uL (4.33-5.43); Red Cell Distribution Width 12.5 % (12.1-15.2)
[2023-08-31 14:09] LABS: PT Prothrombin Time 15.9 SECONDS (9.5-12.5); Protime INR 1.46
[2023-08-31 14:18] LABS: Albumin 4.1 g/dL (3.4-5.0); Albumin/Globulin Ratio 1.3 (1.1-1.8); Anion Gap 5.8 mEq/L (5.0-15.0); Bilirubin Direct 0.3 mg/dL (0-0.2); Bilirubin Indirect, Calculated 0.8 mg/dL (0.2-0.8); Bilirubin Total 1.1 mg/dL (0.2-1.0); Globulin 3.1 g/dL (2.3-3.5); Potassium 3.8 mEq/L (3.5-5.1); Protein, Total 7.2 g/dL (6.4-8.2); Troponin High Sensitivity 28.5 pg/mL (<58.9)
--- NOTE | 2023-08-31 14:49 | RAD REPORT ---
EXAM DESCRIPTION: CT - Head C Spine Cap Wo Con - 08/31/2023 2:11 pm CLINICAL HISTORY: Head and neck injury with chest and abdominal pain status post fall TECHNIQUE: Computed axial tomography of head, neck, chest, abdomen and pelvis obtained. IV and oral contrast not requested. Coronal and sagittal reconstruction performed. All CT scans are performed using dose optimization technique as appropriate and may include automated exposure control or mA/KV adjustment according to patient size. COMPARISON: CT abdomen 2022 MRI brain 2020 FINDINGS: An intracranial bleed is not seen. The ventricles are normal in caliber. An extra-axial fluid collection is not noted. Fluid within the sinuses/mastoids is not seen. A cervical fracture is not seen. No dislocation is noted. The evaluation of mediastinum, bay, vessels, solid organs and bowel are limited secondary to the lac k of contrast administration. A mediastinal hematoma is not noted. A pleural effusion is not seen. A lung contusion is not present. The liver,spleen, pancreas, adrenals,kidneys and bladder do not demonstrate an acute traumatic injury Prostate moderately enlarged. Small left hernia fat. Possible small gallstones. No gallbladder wall t hickening IMPRESSION: No acute intracranial abnormality is seen. A cervical fracture is not visualized. If the patient continues to have symptoms to suggest intracran ial/spinal cord pathology MRI be recommended No acute traumatic abnormality involving the chest, abdomen or pelvis
--- NOTE | 2023-08-31 14:56 | RAD REPORT ---
EXAM DESCRIPTION: [place] Single View08/31/2023 2:10 pm CLINICAL HISTORY: Chest pain COMPARISON: 2021 FINDINGS: The lungs are mildly to moderately hyperaerated The lungs appear clear of acute infiltrate. The heart is mildly enlarged IMPRESSION: No acute abnormalities displayed
--- NOTE | 2023-08-31 15:14 | EDPHYS ---
Physician Documentation [facility] Name: Ace William Age: 88 yrs Sex: Male : 1935 Arrival Date: 08/31/2023 Time: 13:26 Bed 7 Private MD: ED Physician Mango Quinones HPI: 08/30 13:50 This 88 yrs old Male presents to ER via Ambulatory with complaints of Palpitations, Low sp3 BP. 13:50 88-year-old male with history of hypertension, hyperlipidemia, prior CVA currently on sp3 Eliquis now presents to the ED with chief complaint palpitations which are now resolved and low blood pressure that occurred earlier this morning which are now improved but patient still came in for evaluation. Patient also feels weak globally and has had multiple recent falls. He has some bruising on his right chest and bruising on his forehead. No loss of consciousness reported. He does have some mild chest pain presumably from the fall since that occurred after that. Patient denies fever, URI symptoms, cough, shortness of breath, back pain, abdominal pain, vomiting, diarrhea, rash, syncope, travel history, prolonged immobilization, known sick contacts, or any other signs or symptoms on ROS at this time.. Historical: - Allergies: 13:41 No Known Allergies; bp - Home Meds: 13:41 Eliquis 2.5 mg oral tablet 2 times per day [Active]; finasteride 5 mg oral tablet daily bp [Active]; metoprolol succinate 25 mg oral Tablet, Extended Release 24 hr daily [Active]; paroxetine HCl 20 mg oral tablet 2 times per day [Active]; atorvastatin 80 mg oral tablet every day at bedtime [Active]; tamsulosin 0.4 mg oral capsule daily [Active]; - PMHx: 13:41 Hypertensive disorder; Hypercholesterolemia; constipation; Cerebrovascular accident; bp - PSHx: 13:41 back; eye; skin cancer removed; bp - Immunization history:: Adult Immunizations up to date. - Infectious Disease History:: Denies. - Social history:: Smoking status: Patient denies any tobacco usage or history of. ROS: 13:52 Constitutional: Negative for fever, chills, and weight loss, Eyes: Negative for injury, sp3 pain, redness, and discharge, Neck: Negative for injury, pain, and swelling, Respiratory: Negative for shortness of breath, cough, wheezing, and pleuritic chest pain, Abdomen/GI: Negative for abdominal pain, nausea, vomiting, diarrhea, and constipation, Back: Negative for injury and pain, Skin: Negative for injury, rash, and discoloration, Psych: Negative for depression, anxiety, suicide ideation, homicidal ideation, and hallucinations, Allergy/Immunology: Negative for hives, rash, and allergies, Endocrine: Negative for neck swelling, polydipsia, polyuria, polyphagia, and marked weight changes, Hematologic/Lymphatic: Negative for swollen nodes, abnormal bleeding, and unusual bruising, 13:52 All other systems are negative, Exam: 13:52 Constitutional: This is a well developed, well nourished patient who is awake, alert, sp3 and in no acute distress. Eyes: Pupils equal round and reactive to light, extra-ocular motions intact. Lids and lashes normal. Conjunctiva and sclera are non-icteric and not injected. Cornea within normal limits. Periorbital areas with no swelling, redness, or edema. ENT: Nares patent. No nasal discharge, no septal abnormalities noted. External auditory canals are clear. Oropharynx with no redness, swelling, or masses, exudates, or evidence of obstruction, uvula midline. Mucous membranes moist. Neck: Trachea midline, no thyromegaly or masses palpated, and no cervical lymphadenopathy. Supple, full range of motion without nuchal rigidity, or vertebral point tenderness. No Meningismus. Cardiovascular: Regular rate and rhythm with a normal S1 and S2. No gallops, murmurs, or rubs. Normal PMI, no JVD. No pulse deficits. Respiratory: Lungs have equal breath sounds bilaterally, clear to auscultation and percussion. No rales, rhonchi or wheezes noted. No increased work of breathing, no retractions or nasal flaring. Abdomen/GI: Soft, non-tender, with normal bowel sounds. No distension or tympany. No guarding or rebound. No evidence of tenderness throughout. Back: No spinal tenderness. No costovertebral tenderness. Full range of motion. Skin: Warm, dry with normal turgor. Normal color with no rashes, no lesions, and no evidence of cellulitis. MS/ Extremity: Pulses equal, no cyanosis. Neurovascular intact. Full, normal range of motion. Psych: Awake, alert, with orientation to person, place and time. Behavior, mood, and affect are within normal limits. 13:52 Head/face: Abrasions on forehead and in between eyebrows. No malocclusion or septal nasal hematoma noted.. 13:52 Chest/axilla: Right side lateral axillary bruising noted on chest wall.. 13:52 Neuro: No new deficits. Mental status is at baseline and normal., 14:06 ECG was reviewed by the Attending Physician. EKG demonstrates atrial fibrillation at 74 sp3 bpm and irregularly irregular pattern with QTc prolongation at 477 ms, leftward axis and nonspecific ST/T changes without evidence of acute ischemia. Vital Signs: 13:41 BP 149 / 90; Pulse 56; Resp 16; Temp 98; Pulse Ox 99% ; bp 14:41 BP 125 / 75; Pulse 85; Resp 18; Pulse Ox 97% on R/A; db 15:00 BP 139 / 77; Pulse 76; Resp 18; Pulse Ox 100% on R/A; db 16:00 BP 126 / 79; Pulse 77; Resp 18; Pulse Ox 100% on R/A; db MDM: 13:35 Patient medically screened. sp3 13:53 Data reviewed: vital signs, nurses notes, old medical records, lab test result(s), EKG, sp3 radiologic studies. ED course: 88-year-old male with PMH above on Eliquis now with palpitations and near syncope/hypotension now resolved. Patient did not measure his blood pressure however he felt like it was low. Differential diagnosis is broad and includes vasovagal episode, acute coronary syndrome, TIA/CVA spectrum, trauma related sequela, viral syndrome, electrolyte abnormality, among others. I am not highly suspicious for sepsis or shock. Workup will include CT scan of the head, chest, EKG, laboratory values and general support. Disposition pending workup and patient course with probable admission for observation given degree of findings.. 08/30 13:35 Order name: Basic Metabolic Panel; Complete Time: 14:49 sp3 08/30 13:35 Order name: CBC with Diff; Complete Time: 15:28 sp3 08/30 13:35 Order name: LFT's; Complete Time: 14:49 sp3 08/30 13:35 Order name: Magnesium; Complete Time: 14:49 sp3 08/30 13:35 Order name: NT PRO-BNP; Complete Time: 14:49 3 08/30 13:35 Order name: PT-INR; Complete Time: 14:49 3 08/30 13:35 Order name: Troponin HS; Complete Time: 14:49 3 08/30 13:35 Order name: Lactate w/ 2H reflex if indic.; Complete Time: 14:49 3 08/30 15:27 Order name: CBC Smear Scan; Complete Time: 15:28 [facility] 08/30 13:35 Order name: XRAY Chest (1 view); Complete Time: 15:00 3 08/30 13:55 Order name: CT Traumagram (Head C Spine CAP wo con); Complete Time: 15:00 [facility] 08/30 15:24 Order name: CONS Physician Consult [facility] 08/30 13:35 Order name: Cardiac monitoring; Complete Time: 13:58 [facility] 08/30 13:35 Order name: EKG - Nurse/Tech; Complete Time: 13:58 [facility] 08/30 13:35 Order name: IV Saline Lock; Complete Time: 13:48 3 08/30 13:35 Order name: Labs collected and sent; Complete Time: 13:48 [facility] 08/30 13:35 Order name: O2 Per Protocol; Complete Time: 13:58 [facility] 08/30 13:35 Order name: O2 Sat Monitoring; Complete Time: 13:58 [facility] 08/30 13:53 Order name: Labs - recollect needed: recollect lactate, send on ice; Complete Time: bd 14:03 Administered Medications: 15:33 Drug: Furosemide IVP 20 mg IVP once; give over 2 minutes Route: IVP; Site: right hand; db 16:00 Follow up: Response: No adverse reaction db Disposition Summary: 08/31/23 15:14 Hospitalization Ordered Notes: Hospitalization Status: Observation sp3 Provider: Negra Jett3 Location: Telemetry/MedSurg (observation) sp3 Condition: Stable sp3 Problem: an acute exacerbation sp3 Symptoms: have worsened sp3 Bed/Room Type: Standard sp3 Room Assignment: 420(08/31/23 15:37) bd Diagnosis - Palpitations, shortness of breath, congestive heart failure, near syncope sp3 Forms: - Medication Reconciliation Form sp3 - SBAR form sp3 - Leadership Thank You Letter sp3 Signatures: Dispatcher [employer] EDMS Elsie Gee bd Vito Pa, RN RN Mango Pandey MD MD sp3 Brittany Billingsley, JEROMY RN db Moraima Whitaker, BARREL RIFLER BUTTON BARREL RIFLER BUTTON cm12 Corrections: (The following items were deleted from the chart) 13:36 13:36 Chest Single View+RAD.RAD.BRZ ordered. EDMS EDMS 13:55 13:55 Head C Spine Cap Wo Con+CT.RAD.BRZ ordered. EDMS EDMS 15:37 15:14 sp3 bd
--- NOTE | 2023-08-31 15:14 | ER ---
Nurse's Notes [facility] Name: Ace William Age: 88 yrs Sex: Male : 1935 Arrival Date: 08/31/2023 Time: 13:26 Bed 7 Private MD: Diagnosis: Palpitations, shortness of breath, congestive heart failure, near syncope Presentation: 08/30 13:41 Chief complaint: Patient states: PALPITATIONS AND HYPOTENSION THIS AM. Coronavirus bp screen: At this time, the client does not indicate any symptoms associated with coronavirus-19. Ebola Screen: No symptoms or risks identified at this time. Initial Sepsis Screen: Does the patient meet any 2 criteria? No. Patient's initial sepsis screen is negative. Does the patient have a suspected source of infection? No. Patient's initial sepsis screen is negative. Risk Assessment: Do you want to hurt yourself or someone else? Patient reports no desire to harm self or others. Onset of symptoms was August 31, 2023 at 07:00. 13:41 Method Of Arrival: Ambulatory bp 13:41 Acuity: LYDIA 3 bp Triage Assessment: 13:41 General: Appears in no apparent distress. Behavior is appropriate for age. Pain: Denies bp pain. Cardiovascular: Reports palpitations. Historical: - Allergies: 13:41 No Known Allergies; bp - Home Meds: 13:41 Eliquis 2.5 mg oral tablet 2 times per day [Active]; finasteride 5 mg oral tablet daily bp [Active]; metoprolol succinate 25 mg oral Tablet, Extended Release 24 hr daily [Active]; paroxetine HCl 20 mg oral tablet 2 times per day [Active]; atorvastatin 80 mg oral tablet every day at bedtime [Active]; tamsulosin 0.4 mg oral capsule daily [Active]; - PMHx: 13:41 Hypertensive disorder; Hypercholesterolemia; constipation; Cerebrovascular accident; bp - PSHx: 13:41 back; eye; skin cancer removed; bp - Immunization history:: Adult Immunizations up to date. - Infectious Disease History:: Denies. - Social history:: Smoking status: Patient denies any tobacco usage or history of. Screenin:52 [facility] ED Fall Risk Assessment (Adult) History of falling in the last 3 months, db including since admission Yes- fall prone (multiple falls) (3 pts) Confusion or Disorientation No (0 pts) Intoxicated or Sedated No (0 pts) Impaired Gait Yes (1 pt) Mobility Assist Device Used Yes (1 pt) Altered Elimination No (0 pt) Score/Fall Risk Level 3 or more points = High Risk Oriented to surroundings, Maintained a safe environment. Abuse screen: Denies threats or abuse. Denies injuries from another. Nutritional screening: No deficits noted. Tuberculosis screening: No symptoms or risk factors identified. Assessment: 15:52 Reassessment: Patient appears in no apparent distress at this time. Patient and/or db family updated on plan of care and expected duration. Pain level reassessed. Patient is alert, oriented x 3, equal unlabored respirations, skin warm/dry/pink. General: Appears in no apparent distress. comfortable, Behavior is calm, cooperative. Neuro: Level of Consciousness is awake, alert, obeys commands, Oriented to person, place, time, situation. 16:00 Reassessment: Patient appears in no apparent distress at this time. Patient and/or db family updated on plan of care and expected duration. Pain level reassessed. Patient is alert, oriented x 3, equal unlabored respirations, skin warm/dry/pink. General: Appears in no apparent distress. comfortable, Behavior is calm, cooperative. Vital Signs: 13:41 BP 149 / 90; Pulse 56; Resp 16; Temp 98; Pulse Ox 99% ; bp 14:41 BP 125 / 75; Pulse 85; Resp 18; Pulse Ox 97% on R/A; db 15:00 BP 139 / 77; Pulse 76; Resp 18; Pulse Ox 100% on R/A; db 16:00 BP 126 / 79; Pulse 77; Resp 18; Pulse Ox 100% on R/A; db ED Course: 13:27 Patient arrived in ED. rg4 13:34 Mango Quinones MD is Attending Physician. sp3 13:41 Triage completed. bp 13:43 Arm band placed on. bp 13:48 Lactate w/ 2H reflex if indic. Sent. bc6 13:48 Basic Metabolic Panel Sent. bc6 13:49 CBC with Diff Sent. bc6 13:49 LFT's Sent. bc6 13:49 Magnesium Sent. bc6 13:49 NT PRO-BNP Sent. bc6 13:49 PT-INR Sent. bc6 13:49 Troponin HS Sent. bc6 13:49 Initial lab(s) drawn, by me, sent to lab. Inserted saline lock: 20 gauge in right bc6 forearm, using aseptic technique. Blood collected. 14:03 EKG done, by ED staff. aw1 14:11 XRAY Chest (1 view) In Process Unspecified. EDMS 14:12 CT Traumagram (Head C Spine CAP wo con) In Process Unspecified. EDMS 15:13 Brittany Billingsley, RN is Primary Nurse. db 15:13 Negra Jett MD is Hospitalizing Provider. sp3 17:14 Patient has correct armband on for positive identification. Bed in low position. Call db light in reach. Side rails up X 1. Provided Education on: ADMISSION. Client placed on continuous cardiac and pulse oximetry monitoring. NIBP monitoring applied. 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 Pulse ox on. NIBP on. Warm blanket given. Pillow given. 17:14 No provider procedures requiring assistance completed. Patient admitted, IV remains in db place. Administered Medications: 15:33 Drug: Furosemide IVP 20 mg IVP once; give over 2 minutes Route: IVP; Site: right hand; db 16:00 Follow up: Response: No adverse reaction db Medication: 15:51 VIS not applicable for this client. db Outcome: 15:14 Decision to Hospitalize by Provider. sp3 17:14 Admitted to ER Hold. Please see [facility] for further documentation. db 17:14 Condition: stable 17:14 Instructed on the need for admit, 17:17 Patient left the ED. db Signatures: Dispatcher [employer] Syeda Marti rg4 Vito Pa, RN RN Mango Quinones MD MD sp3 Brittany Billingsley, RN RN db Audra Briscoe bc6 Rosalia Mark aw1
--- NOTE | 2023-08-31 15:21 | P.HP ---
Patient History Date of Service: 08/31/23 Reason for admission: palpitations History of Present Illness: 88 yrs old Male e with history of hypertension, hyperlipidemia, prior CVA currently on Eliquis presents with chief complaint palpitations which are now resolved. He reports associated chest pain, nonradiating, CP 2/10, described as dull. He reports mild shortness of breath that is worse with exertion. He reports generalized weakness and frequent falls. He reports falls from unsteady gait. He reports several falls over the past year or so. He lives alone, daughter lives near by and checks on him often. He reports ambulating independently, no use of DME. He reports landing on his bottom. He reports occasionally hitting his head, landing on his bottom, with No reported loss of consciousness. Plan to admit for Palpitations, shortness of breath, congestive heart failure, near syncope with cardiology consult. BP 149 / 90; Pulse 56; Resp 16; Temp 98; Pulse Ox 99% EKG n. EKG demonstrates atrial fibrillation at 74 bpm and irregularly irregular pattern with QTc prolongation at 477 ms, leftward and nonspecific ST/T changes without evidence of acute ischemia, Lab elevated BNP 2192, trop normal 28.5, thrombocytopenia platelets 85, CxR The heart is mildly enlarged IMPRESSION: No acute abnormalities displayed, CT Head, Spine, chest IMPRESSION:No acute intracranial abnormality is seen A cervical fracture is not visualized. If the patient continues to have symptoms to suggest intra cranial/spinal cord pathology MRI be recommended Allergies No Known Allergies Allergy (Verified 05/01/21 08:43) Home Medications: PARoxetine HCL [Paxil*] 20 mg PO DAILY 06/15/14 Atorvastatin Calcium [Lipitor*] 20 mg PO BEDTIME #60 tab 07/14/16 Tamsulosin HCl [Flomax] 0.4 mg PO DAILY 07/22/18 L.acidoph,Paracasei, B.lactis [Probiotic] 1 each PO DAILY 08/09/18 Colchicine 0.6 mg PO DAILY 04/08/21 Indomethacin [Indocin] 25 mg PO DAILY 04/08/21 Metoprolol Succinate 1 tab PO DAILY 04/30/21 - Past Medical/Surgical History Diabetic: No -: Depression with anxiety -: Arthritis -: Pre hypertension -: Alcohol use -: Carpal tunnel surgery -: Back surgery -: Appendectomy Psychosocial/ Personal History: He is a . He has 5 children. He is retired. - Social History Alcohol use: Yes CD- Drugs: No Caffeine use: No Review of Systems per HPI Physical Examination - Physical Exam General: Alert, In no apparent distress, Oriented x3 HEENT: Atraumatic, Normocephalic Neck: Supple, 2+ carotid pulse no bruit Respiratory: Normal air movement, Diminished Cardiovascular: Normal pulses, Irregular heart rate/rhythm Capillary refill: <2 Seconds Gastrointestinal: Normal bowel sounds, Soft and benign Musculoskeletal: No clubbing, No swelling, Other (unsteady gait) Integumentary: Other (small abrasion bridge of nose) Neurological: Normal speech, Other (generalized weakness) - Studies Laboratory Data (last 24 hrs) 08/31/23 08/31/23 08/31/23 13:45 13:45 13:45 WBC 6.60 Hgb 13.7 Hct 40.8 Plt Count 85 L PT 15.9 H INR 1.46 Sodium 138 Potassium 3.8 BUN 11 Creatinine 0.92 Glucose 109 H Magnesium 2.0 Total Bilirubin 1.1 H AST 12 L ALT 27 Alkaline Phosphatase 129 H Assessment and Plan - Plan Assessment plan Palpitations Atrial fibrillation controlled rate Chronic anticoagulation shortness of breath Acute on chronic congestive heart failure near syncope Fall with cardiology consult, telemetry Echo, trend troponins, trend BMP He reports associated chest pain, nonradiating, CP 2/10, described as dull. He reports mild shortness of breath that is worse with exertion. He reports generalized weakness and frequent falls. He reports falls from unsteady gait. He reports several falls over the past year or so. He lives alone, daughter lives near by and checks on him often. He reports ambulating independently, no use of DME. He reports landing on his bottom. No reported loss of consciousness. CT Head, Spine, chest IMPRESSION:No acute intracranial abnormality is seen A cervical fracture is not visualized. If the patient continues to have symptoms to suggest intracranial/spinal cord pathology MRI be recommended PT Eval for DME needs hypertension hyperlipidemia prior CVA currently on Eliquis BP 149 / 90; Pulse 56; Resp 16; Temp 98; Pulse Ox 99% EKG n. EKG demonstrates atrial fibrillation at 74 bpm and irregularly irregular pattern with QTc prolongation at 477 ms, leftward and nonspecific ST/T changes without evidence of acute ischemia, Lab elevated BNP 2192, trop normal 28.5 Trend troponin, trend BMP Thrombocytopenia thrombocytopenia platelets 85, CxR The heart is mildly enlarged IMPRESSION: No acute abnormalities displayed Full code DVT Eliquis Cardiac diet Disposition Home, independent prior, Discharge Plan: Home - Advance Directives Does patient have a Living Will: Yes Does patient have a Durable POA for Healthcare: Yes - Code Status/Comfort Care Code Status: Full Code Critical Care: No Time Spent Managing Pts Care (In Minutes): 55
[2023-08-31 15:27] LABS: Blood Morphology Comment NOT SEEN (NOT SEEN); Platelet Estimate DECR; White Blood Cell Scan OK (OK)
[2023-08-31] MEDS ORDERED: FUROSEMIDE 20 MG/ 2ML VIAL ONE (15:32)
[2023-08-31] MEDS ORDERED: LABETALOL 20 MG/4ML SYRINGE IV PRN (16:28)
[2023-08-31] MEDS ORDERED: ALPRAZOLAM 0.25 MG TABLET PO PRN (16:28)
[2023-08-31] MEDS ORDERED: ONDANSETRON 4 MG/2 ML VIAL IV PRN (16:28)
[2023-08-31] MEDS ORDERED: ACETAMINOPHEN 500 MG TAB PO PRN (16:28)
[2023-08-31] MEDS: FUROSEMIDE 40 MG/4 ML VIAL IV SCH (17:00)
[2023-08-31 17:45] VITALS: BMI 27.2
[2023-08-31] MEDS: FUROSEMIDE 20 MG TABLET PO ONE (18:30)
[2023-08-31] MEDS ORDERED: FUROSEMIDE 20 MG TABLET PO ONE ×2 (19:00→21:00)
[2023-08-31] MEDS ORDERED: ESZOPICLONE 1 MG TAB PO PRN (22:18)
[2023-08-31 22:41] VITALS: O2SAT 98
[2023-08-31 22:46] LABS: Specific Gravity 1.011 (1.005-1.030); Sqamous Epithelial None Seen /HPF (None Seen); Urine Bacteria None Seen /HPF (<20); Urine Bilirubin NEGATIVE (Negative); Urine Blood 1+ (Negative); Urine Clarity Clear (Clear); Urine Color Light-Yellow (Yellow); Urine Culture Reflex Order NOT NEEDED; Urine Glucose NEGATIVE (Negative); Urine Ketones NEGATIVE (Negative); Urine Microscopic Reflex YN ORDER UMIC; Urine Mucus Slight /HPF (None Seen); Urine Nitrite NEGATIVE (Negative); Urine Protein NEGATIVE (Negative); Urine RBC <5 /HPF (None Seen); Urine Urobilinogen Normal (Normal); Urine WBC <5 /HPF (<5)
[2023-09-01 01:24] LABS: Absolute Lymphocytes (CBC) 1.3 K/uL (0.7-4.9); Absolute Monocytes 1.7 K/uL (0.1-1.3); Absolute Neutrophil 3.4 K/uL (1.8-8.0); Basophils % 0.1 % (0-1.3); Eosinophils % 0.1 % (0-4.4); Hematocrit 36.7 % (39.6-49.0); Hemoglobin 12.8 g/dL (13.6-17.9); Lymphocytes % 20.4 % (15.3-44.8); MCH 31.9 pg (27.0-35.0); MCHC 34.8 g/dL (32.0-36.0); MCV 91.5 fL (80-100); MPV 9.7 fL (7.6-11.3); Neutrophils % 52.9 % (41.7-73.7); Platelets 77 thou/uL (152-406); RBC Red Blood Cell Count 4.01 M/uL (4.33-5.43); Red Cell Distribution Width 12.8 % (12.1-15.2)
[2023-09-01 01:29] LABS: Monocytes % 26.5 % (3.3-12.3)
[2023-09-01 01:31] LABS: Anion Gap 2.3 mEq/L (5.0-15.0); Potassium 3.3 mEq/L (3.5-5.1)
[2023-09-01] MEDS: POTASSIUM 25 MEQ EFFERV TAB PO ONE (06:26)
--- NOTE | 2023-09-01 08:40 | P.PN ---
Subjective Date of Service: 09/01/23 Chief Complaint: palpitations admitted for presyncope, falls, hx afib on eliquis PT to eval for DME needs - Physical Exam General: Alert, In no apparent distress, Oriented x3 HEENT: Atraumatic, Normocephalic Neck: Supple, 2+ carotid pulse no bruit Respiratory: Normal air movement, Diminished Cardiovascular: Normal pulses, Irregular heart rate/rhythm Capillary refill: <2 Seconds Gastrointestinal: Normal bowel sounds, Soft and benign Musculoskeletal: No clubbing, No swelling, Other (unsteady gait) Integumentary: Other (small abrasion bridge of nose) Neurological: Normal speech, Other (generalized weakness) Review of Systems per HPI Physical Examination - Vital Signs Temperature: 97.1 F Blood Pressure: 130/79 Pulse: 69 Respirations: 15 Pulse Ox (%): 98 - Studies Laboratory Data (last 24 hrs) 08/31/23 08/31/23 08/31/23 13:45 13:45 13:45 WBC 6.60 Hgb 13.7 Hct 40.8 Plt Count 85 L PT 15.9 H INR 1.46 Sodium 138 Potassium 3.8 BUN 11 Creatinine 0.92 Glucose 109 H Magnesium 2.0 Total Bilirubin 1.1 H AST 12 L ALT 27 Alkaline Phosphatase 129 H Assessment And Plan - Plan Assessment plan Palpitations Atrial fibrillation controlled rate Chronic anticoagulation shortness of breath Acute on chronic congestive heart failure near syncope Fall with cardiology consult, telemetry Echo, trend troponins, trend BMP He reports associated chest pain, nonradiating, CP 2/10, described as dull. He reports mild shortness of breath that is worse with exertion. He reports generalized weakness and frequent falls. He reports falls from unsteady gait. He reports several falls over the past year or so. He lives alone, daughter lives near by and checks on him often. He reports ambulating independently, no use of DME. He reports landing on his bottom. No reported loss of consciousness. CT Head, Spine, chest IMPRESSION:No acute intracranial abnormality is seen A cervical fracture is not visualized. If the patient continues to have symptoms to suggest intracranial/spinal cord pathology MRI be recommended PT Eval for DME needs hypertension hyperlipidemia prior CVA currently on Eliquis BP 149 / 90; Pulse 56; Resp 16; Temp 98; Pulse Ox 99% EKG n. EKG demonstrates atrial fibrillation at 74 bpm and irregularly irregular pattern with QTc prolongation at 477 ms, leftward and nonspecific ST/T changes without evidence of acute ischemia, Lab elevated BNP 2192, trop normal 28.5 Trend troponin, trend BMP Thrombocytopenia thrombocytopenia platelets 85, CxR The heart is mildly enlarged IMPRESSION: No acute abnormalities displayed Full code DVT Eliquis Cardiac diet Disposition Home, independent prior, Discharge Plan: Home Critical Care: No Time Spent Managing PTS Care (In Minutes): 35
--- NOTE | 2023-09-01 12:21 | P.CNS ---
Date of Consult: 09/01/23 Chief Complaint: palpitations History of Present Illness: Patient with PMH of HTN, Atrial fibrillation, CVA presented with generalized weakness, weak legs and fall, dneies syncope, he report occasional episodes of palpitations, no chest pain, no SOB, no other cardiac symptoms. Allergies No Known Allergies Allergy (Verified 05/01/21 08:43) Home Medications: PARoxetine HCL [Paxil*] 20 mg PO DAILY 06/15/14 Tamsulosin HCl [Flomax] 0.4 mg PO BID 07/22/18 Metoprolol Succinate 25 tab PO DAILY 04/30/21 Apixaban [Eliquis] 2.5 mg PO BID 08/31/23 Atorvastatin Calcium [Lipitor*] 80 mg PO BEDTIME 08/31/23 Finasteride 5 mg PO DAILY 08/31/23 - Past Medical/Surgical History Diabetic: No -: Depression with anxiety -: Arthritis -: Pre hypertension -: Alcohol use -: stroke -: Carpal tunnel surgery -: Back surgery -: Appendectomy Psychosocial/ Personal History: He is a . He has 5 children. He is retired. - Social History Alcohol use: Yes CD- Drugs: No Caffeine use: Yes Place of Residence: Home Review of Systems 10-point ROS is otherwise unremarkable Physical Examination Temp Pulse Resp BP Pulse Ox 97.2 F 74 16 100/59 L 99 09/01/23 12:00 09/01/23 12:00 09/01/23 12:00 09/01/23 12:00 09/01/23 12:00 General: Alert, In no apparent distress HEENT: Atraumatic, PERRLA, Mucous membr. moist/pink, EOMI, Sclerae nonicteric Neck: Supple, 2+ carotid pulse no bruit, No LAD, Without JVD or thyroid abnormality Respiratory: Clear to auscultation bilaterally, Normal air movement Cardiovascular: Irregular heart rate/rhythm Gastrointestinal: Normal bowel sounds, No tenderness Musculoskeletal: No tenderness Integumentary: No rashes Neurological: Normal gait, Normal speech, Normal tone, Normal affect Lymphatics: No axilla or inguinal lymphadenopathy Laboratory Data (last 24 hrs) 08/31/23 08/31/23 08/31/23 13:45 13:45 13:45 WBC 6.60 Hgb 13.7 Hct 40.8 Plt Count 85 L PT 15.9 H INR 1.46 Sodium 138 Potassium 3.8 BUN 11 Creatinine 0.92 Glucose 109 H Magnesium 2.0 Total Bilirubin 1.1 H AST 12 L ALT 27 Alkaline Phosphatase 129 H - Problems (1) Atrial fibrillation Current Visit: Yes Status: Acute Plan: Patient is currently rate controlled. Tele reviewed and no pauses Continue Toprol XL 25 mg daily Continue Eliquis 2.5 mg po BID (2) Hypertension Onset Date: 07/14/16 Current Visit: No Status: Acute Plan: BP is soft here in the hospital, hold home medications except for Toprol XL. Qualifiers: Hypertension type: essential hypertension Qualified Code(s): I10 - Essential (primary) hypertension (3) Hyperlipidemia Current Visit: No Status: Chronic Plan: Lipid panel as outpatient. Qualifiers: Hyperlipidemia type: unspecified Qualified Code(s): E78.5 - Hyperlipidemia, unspecified
--- NOTE | 2023-09-01 15:09 | EKG ---
Test Date: 2023-08-31 Test Time: 14:00:37 Graduate Teaching Associate: NILESH MEASUREMENT RESULTS: Intervals: Rate: 74 OK: QRSD: 102 QT: 430 QTc: 477 Cook: P: OK: QRS: -36 T: 96 INTERPRETIVE STATEMENTS: Atrial fibrillation Left axis deviation Prolonged QT Abnormal ECG Compared to ECG 07/22/2018 15:32:07 Left-axis deviation now present Prolonged QT interval now present Sinus bradycardia no longer present Electronically Signed On 09-01-23 15:06:06 CDT by Dm Arnold
[2023-09-01 16:52] VITALS: BP 127/73; TEMP 96.9
--- NOTE | 2023-09-02 10:04 | P.DS ---
Admission Date: 08/31/23 Discharge Date: 09/01/23 Disposition: ROUTINE DISCHARGE Discharge Condition: GOOD Reason for Admission: palpitations Brief History of Present Illness: 88 yrs old Male e with history of hypertension, hyperlipidemia, prior CVA currently on Eliquis presents with chief complaint palpitations which are now resolved. He reports associated chest pain, nonradiating, CP 2/10, described as dull. He reports mild shortness of breath that is worse with exertion. He reports generalized weakness and frequent falls. He reports falls from unsteady gait. He reports several falls over the past year or so. He lives alone, daughter lives near by and checks on him often. He reports ambulating independently, no use of DME. He reports landing on his bottom. He reports occasionally hitting his head, landing on his bottom, with No reported loss of consciousness. Plan to admit for Palpitations, shortness of breath, congestive heart failure, near syncope with cardiology consult. BP 149 / 90; Pulse 56; Resp 16; Temp 98; Pulse Ox 99% EKG n. EKG demonstrates atrial fibrillation at 74 bpm and irregularly irregular pattern with QTc prolongation at 477 ms, leftward and nonspecific ST/T changes without evidence of acute ischemia, Lab elevated BNP 2192, trop normal 28.5, thrombocytopenia platelets 85, CxR The heart is mildly enlarged IMPRESSION: No acute abnormalities displayed, CT Head, Spine, chest IMPRESSION:No acute intracranial abnormality is seen A cervical fracture is not visualized. If the patient continues to have symptoms to suggest intracranial/spinal cord pathology MRI be recommended - Physical Exam General: Alert, In no apparent distress, Oriented x3 HEENT: Atraumatic, Normocephalic Neck: Supple, 2+ carotid pulse no bruit Respiratory: Normal air movement, Diminished Cardiovascular: Normal pulses, Irregular heart rate/rhythm Capillary refill: <2 Seconds Gastrointestinal: Normal bowel sounds, Soft and benign Musculoskeletal: No clubbing, No swelling, Other (unsteady gait) Integumentary: Other (small abrasion bridge of nose) Neurological: Normal speech, Other (generalized weakness) Hospital Course: 88 yrs old Male e with history of hypertension, hyperlipidemia, prior CVA currently on Eliquis presents with chief complaint palpitations which are now resolved. He reports associated chest pain, nonradiating, CP 2/10, described as dull. He reports mild shortness of breath that is worse with exertion. He reports generalized weakness and frequent falls. He reports falls from unsteady gait. He was noted to have A-fib, with palpitations, mild chest pain, was evaluated by cardiology, Patient can discharge home follow-up with primary care, follow-up with cardiology in 1 week Assessment Palpitations, patient has a history of A-fib, on Eliquis, was evaluated by cardiology, Generalized weakness, PT eval for DME needs Frequent falls, was evaluated for by PT patient ambulates independently with physical therapy evaluation, Metoprolol dose adjusted to 25 daily for hypotension Continue home medicines as previously prescribed GOAL: Clear understanding of disease process INSTRUCTIONS: Physician Discharge Instructions: -Follow-up with PCP in 1 to 2 weeks -Please call Dr. Jett at [phone] if any questions regarding hospital stay -Please call nursing station at [phone] if any nursing or medication questions -Return to the emergency room if symptoms worsen Diet: ADA, low sodium Activity: Fall precautions Vital Signs/Physical Exam: Temp Pulse Resp BP Pulse Ox 96.9 F 74 16 127/73 100 09/01/23 16:00 09/01/23 16:00 09/01/23 16:00 09/01/23 16:00 09/01/23 16:00 Laboratory Data at Discharge: WBC 6.40 thou/uL (4.3-10.9) 09/01/23 01:00 Hgb 12.8 g/dL (13.6-17.9) L 09/01/23 01:00 Hct 36.7 % (39.6-49.0) L 09/01/23 01:00 Plt Count 77 thou/uL (152-406) L 09/01/23 01:00 PT 15.9 SECONDS (9.5-12.5) H 08/31/23 13:45 INR 1.46 08/31/23 13:45 Sodium 137 mEq/L (136-145) 09/01/23 01:00 Potassium 4.1 mEq/L (3.5-5.1) D 09/01/23 12:54 BUN 13 mg/dL (7-18) 09/01/23 01:00 Creatinine 0.96 mg/dL (0.70-1.30) 09/01/23 01:00 Glucose 113 mg/dL (74-106) H 09/01/23 01:00 Magnesium 2.0 mg/dL (1.6-2.4) 09/01/23 01:00 Total Bilirubin 1.1 mg/dL (0.2-1.0) H 08/31/23 13:45 AST 12 U/L (15-37) L 08/31/23 13:45 ALT 27 U/L (16-61) 08/31/23 13:45 Alkaline Phosphatase 129 U/L (45-117) H 08/31/23 13:45 Home Medications: PARoxetine HCL [Paxil*] 20 mg PO DAILY 06/15/14 Tamsulosin HCl [Flomax] 0.4 mg PO BID 07/22/18 Apixaban [Eliquis *] 2.5 mg PO BID 08/31/23 Atorvastatin Calcium [Lipitor*] 80 mg PO BEDTIME 08/31/23 Finasteride 5 mg PO DAILY 08/31/23 Metoprolol Succinate [Toprol Xl] 25 mg PO DAILY #30 tab 09/01/23 New Medications: Metoprolol Succinate [Toprol Xl] 25 mg PO DAILY #30 tab Physician Discharge Instructions: -Follow-up with PCP in 1 to 2 weeks -Follow-up with Cardiology in 1 to 2 weeks -Please call Dr. Jett at [phone] if any questions regarding hospital stay -Please call nursing station at [phone] if any nursing or medication questions -Return to the emergency room if symptoms worsen Diet: AHA Activity: Fall precautions Followup: NONE,NONE [Primary Care Provider] - Time spent managing pt's care (in minutes): 55
== END 2023-09-01 18:49 | disposition home or self-care (01) | DRG 310 ==
LOC: ER 13:26 → ERHOLD 15:21 → 4TH 15:45
PROVIDERS: ADMIT Hospitalist; ATTEND Hospitalist
DX: I48.91 Unspecified atrial fibrillation (principal); I11.0 Hypertensive heart disease with heart failure; I50.9 Heart failure, unspecified; E78.00 Pure hypercholesterolemia, unspecified; D69.6 Thrombocytopenia, unspecified; R29.6 Repeated falls; Z60.2 Problems related to living alone; Z91.81 History of falling; Z79.01 Long term (current) use of anticoagulants; Z90.49 Acquired absence of other specified parts of digestive tract; Z86.73 Personal history of transient ischemic attack (TIA), and cerebral infarction without residual deficits; Z79.899 Other long term (current) drug therapy; Z85.828 Personal history of other malignant neoplasm of skin
CPT/HCPCS: 36415; 70450; 71045; 71250; 72125; 80048; 80076; 81001; 83605; 83735; 83880; 84132; 84484; 85025; 85610; 93005; 94760; 96374; 97161; 99285; J1940